=== PATIENT | female | born 1945 | race Caucasian/White ===

== ENCOUNTER 2019-10-08 08:13 | Outpatient (CLI) | payer MEDICARE, SELFPAY ==
[2019-10-08 08:38] LABS: Hemoglobin A1C 6.6 % (<5.7)
[2019-10-08 09:17] LABS: Alanine Aminotransferase 31 U/L (14-59); Albumin Level 3.6 g/dL (3.4-5.0); Alkaline Phosphatase 64 U/L (46-116); Anion Gap 10.5 mmol/L (7-16); Aspartate Amino Transferase 20 U/L (15-37); Bilirubin,Total 1.3 mg/dL (0.00-1.00); Blood Urea Nitrogen 15 mg/dL (7-18); Calcium 8.7 mg/dL (8.5-10.1); Carbon Dioxide 31 mmol/L (21-32); Chloride 104 mmol/L (98-108); Cholesterol 167 mg/dL (0-200); Estimated Glomerular Filt Rate 56; Glucose 111 mg/dL (70-99); HDL Direct 54 mg/dL (40-60); LDL Cholesterol Calculated 88 mg/dL (<130); Osmolality Calculated 293 mOsm/kg (285-295); Potassium 4.5 mmol/L (3.5-5.1); Sodium 141 mmol/L (136-145); Total Protein 6.7 g/dL (6.4-8.2); Triglycerides 124 mg/dL (0-150)
== END 2019-10-08 08:14 | disposition home or self-care (01) ==
PROVIDERS: PCP Internal Medicine; Visit Provider Internal Medicine
DX: E78.5 Hyperlipidemia, unspecified (principal); R73.03 Prediabetes; M85.80 Other specified disorders of bone density and structure, unspecified site
CPT/HCPCS: 36415; 80053; 80061; 83036

== ENCOUNTER 2019-10-27 07:45 | Outpatient (CLI) | payer MEDICARE, SELFPAY ==
--- NOTE | ~2019-10-27 | DEXA_ITS ---
BMD(1) Young-Adult(2) Age-Matched(3) Region (g/cm2) T-score Z-score WHO Classification L1 0.991 -1.2 0.2 Osteopenia L2 1.098 -0.9 0.5 Normal L3 1.154 -0.5 0.9 Normal L4 1.285 0.5 1.9 Normal L1-L4 1.149 -0.4 1.0 Normal Trend: L1-L4 Change vs Change vs Measured Age BMD(1) Baseline Previous Date ([age]) (g/cm2) (%) (%) 10/27/2019 [age] 1.149 -0.4 -1.8 09/27/2017 72.6 1.170 1.4 2.0 08/31/2015 [age] 1.147 -0.6 -2.1 07/31/2013 [age] 1.172 1.6 1.9 07/16/2011 [age] 1.150 -0.3 -0.3 08/16/2008 [age] 1.154 baseline - 1 - Statistically 68% of repeat scans fall within 1SD (+- 0.010 g/cm2 for AP Spine L1-L4) 2 - [place] (Combined NHANES (ages 20-30) / WinWeb (ages 20-40)) AP Spine Reference Population (v112) 3 - Matched for Age, Weight (females 25-100 kg), Ethnic 11 - World Health Organization - Definition of Osteoporosis and Osteopenia for Women: Normal = T-score at or above -1.0 SD; Osteopenia = T-score between -1.0 and -2.5 SD; Osteoporosis = T-score at or below -2.5 SD; (WHO definitions only apply when a young healthy Women reference database is used to determine T-scores.) Printed: 10/27/2019 8:29:01 AM (13.60)76:3.00:50.00:12.0 0.00:10.86 0.60x1.05 20.8:%Fat=37.0% 0.00:0.00 0.00:0.00 Filename: [id number] Scan Mode: Standard;OneScan 37.0 uGy OfficeDrop [id number] BMD(1) Young-Adult(2,7) Age-Matched(3) Region (g/cm2) T-score Z-score WHO Classification Neck Left 0.837 -1.4 0.2 Osteopenia Right 0.831 -1.5 0.2 Osteopenia Mean 0.834 -1.5 0.2 Osteopenia Difference 0.006 0.0 0.0 - Total Left 0.864 -1.1 0.3 Osteopenia Right 0.871 -1.1 0.3 Osteopenia Mean 0.868 -1.1 0.3 Osteopenia Difference 0.008 0.1 0.1 - Hip [place] Length Comparison (mm) (Right = 103.7 mm) (Mean = 103.4 mm) (Left = 100.8 mm) Trend: Total Mean Change vs Change vs Measured Age BMD(1) Baseline Previous Date (years) (g/cm2) (%) (%) 10/27/2019 74.7 0.868 0.8 0.3 07/31/2013 68.5 0.865 0.5 -0.6 07/16/2011 [age] 0.870 1.0 1.0 08/16/2008 63.5 0.861 baseline - 1 - Statistically 68% of repeat scans fall within 1SD (+- 0.010 g/cm2 for DualFemur Total) 2 - [place] (Combined NHANES (ages 20-30) / WinWeb (ages 20-40)) Femur Reference Population (v112) 3 - Matched for Age, Weight (females 25-100 kg), Ethnic 7 - DualFemur Total T-score difference is 0.1. Asymmetry is None. 11 - World Health Organization - Definition of Osteoporosis and Osteopenia for Women: Normal = T-score at or above -1.0 SD; Osteopenia = T-score between -1.0 and -2.5 SD; Osteoporosis = T-score at or below -2.5 SD; (WHO definitions only apply when a young healthy Women reference database is used to determine T-scores.) Printed: 10/27/2019 8:29:01 AM (13.60); Filename: [id number]; Right Femur; 19.1:%Fat=40.1%; Neck Angle (deg)= 70; Scan Mode: Standard 37.0 uGy; Left Femur; 18.9:%Fat=42.4%; Neck Angle (deg)= 67; Scan Mode: Standard 37.0 uGy OfficeDrop [id number] Dear Baron Fleming, Your patient Dede Johnson completed a BMD test on 10/27/2019 using the OfficeDrop DXA System (analysis version: 13.60) manufactured by [employer]. The following summarizes the results of ou
--- NOTE | ~2019-10-27 | MM_ITS ---
EXAMINATION: MM screening alisa BI w nicolas HISTORY: Screening mammogram, family history of breast cancer in her mother. TECHNIQUE: Craniocaudal and mediolateral oblique 3-D tomosynthesis images were obtained and synthetic 2-D images were generated. CAD analysis was submitted and interpreted. COMPARISON: 07/24/2018, 07/22/2018, 07/16/2017, 07/10/2016 BREAST PARENCHYMAL COMPOSITION: There are scattered areas of fibroglandular density. FINDINGS: RIGHT BREAST: There is no evidence of suspicious mass, calcification, or architectural distortion to suggest malignancy. There has been no significant interval change. LEFT BREAST: There are grouped indeterminate calcifications in the middle third of the outer breast a pproximately 6 cm from the nipple. IMPRESSION: 1. Indeterminate left breast calcifications. 2. Magnification views are recommended. BI-RADS Category 0: Incomplete: Needs additional imaging evaluation. Reviewed, dictated and finalized at location A.
== END 2019-10-27 07:46 | disposition home or self-care (01) ==
LOC: CHSIMG 07:47
PROVIDERS: PCP Internal Medicine; Visit Provider Internal Medicine
DX: Z12.31 Encounter for screening mammogram for malignant neoplasm of breast (principal); Z78.0 Asymptomatic menopausal state; M85.80 Other specified disorders of bone density and structure, unspecified site
CPT/HCPCS: 77063; 77067; 77080

== ENCOUNTER 2019-11-03 09:31 | Outpatient (CLI) | payer MEDICARE, SELFPAY ==
--- NOTE | ~2019-11-03 | MM_ITS ---
EXAMINATION: MM diagnostic mammo unilat LT HISTORY: Indeterminate left breast calcifications on screening mammogram TECHNIQUE: Additional images of the left breast were performed using full field digital mammography. CAD analysis was submitted and interpreted. COMPARISON: 10/27/2019, 07/24/2018, 07/22/2018, 07/16/2017 FINDINGS: There are grouped fine pleomorphic calcifications in the middle third of the upper outer qu adrant of the breast at the 2:00 location 6 cm from the nipple. No associated mass or architectural d istortion is identified. IMPRESSION: 1. Suspicious left breast calcifications. 2. Stereotactic left breast biopsy is recommended. BI-RADS category 4, suspicious findings. Reviewed, dictated and finalized at location A.
== END 2019-11-03 09:32 | disposition home or self-care (01) ==
LOC: CHSIMG 09:34
PROVIDERS: PCP Internal Medicine; Visit Provider Internal Medicine
DX: R92.8 Other abnormal and inconclusive findings on diagnostic imaging of breast (principal)
CPT/HCPCS: 77065

== ENCOUNTER 2019-11-09 10:01 | Outpatient (CLI) | payer MEDICARE, SELFPAY ==
--- NOTE | ~2019-11-09 | MM_ITS ---
MM stereotactic bx LT, MM post biopsy invasive LT, MM stereotactic specimen LT 11/09/2019 11:31 (accession [id number]), 11/09/2019 11:33 (accession [id number]), 11/09/2019 11:32 (accession [id number]) EXAMINATION: MM stereotactic bx LT, MM post biopsy invasive LT, MM s tereotactic specimen LT DATE: Tevin Vidales M.D. INDICATION: Abnormal calcifications in the left breast. Stereotactic core biopsy is requested evalua te for malignancy.] TECHNIQUE AND FINDINGS: The risks and potential benefits of the procedure were discussed with the patient and written informe d consent was obtained. The patient was placed in the prone position clustered at the table with the left breast in mediolateral compression, and the area of interest was localized and targeted utilizi ng digital imaging with stereotaxis. After sterile preparation of the skin, 1% lidocaine was utilized for local anesthesia at the skin pun cture site and 1% lidocaine with epinephrine was utilized for deeper local anesthesia/is about the bi opsy site. A 9G ProZyme vacuum assisted biopsy needle was advanced to the level of the calcification o f interest from a lateral approach utilizing stereotactic guidance and a total of 6 tissue core biops ies were obtained. A specimen radiograph demonstrates that the calcifications of interest are included within the tissue cores. A tissue marker clip was then placed at the biopsy site. The needle was removed and hemosta sis was achieved. The patient tolerated the procedure well and there is no evidence of significant i mmediate complication. The patient was given verbal as well as written postprocedural instructions p rior to discharge from the department. Tissue cores were submitted to surgical pathology for histolo gic analysis. A 2-view left unilateral digital mammogram was obtained post procedure and this demonstrates that the tissue marker clip is in expected position.] IMPRESSION: 1. Successful stereotactic biopsy of calcifications in the left breast, followed by tissue marker cl ip placement. Please refer to pathology report for histologic analysis. Reviewed, dictated and finalized at location A. IMPRESSION: 1. Successful stereotactic biopsy of calcifications in the left breast, follow ed by tissue marker clip placement. Please refer to pathology report for histo logic analysis. IMPRESSION: 1. Successful stereotactic biopsy of calcifications in the left breast, follow ed by tissue marker clip placement. Please refer to pathology report for histo logic analysis.
== END 2019-11-09 10:02 | disposition home or self-care (01) ==
PROVIDERS: PCP Internal Medicine; Visit Provider Internal Medicine
DX: R92.1 Mammographic calcification found on diagnostic imaging of breast (principal); C50.412 Malignant neoplasm of upper-outer quadrant of left female breast
CPT/HCPCS: 19081; 88305; 88342; A4648

== ENCOUNTER 2019-12-10 09:22 | Outpatient (CLI) | payer MEDICARE, SELFPAY ==
--- NOTE | 2019-12-10 09:24 | ECG_ITS ---
Measurements Intervals Riner Rate: 80 P: 58 WV: 132 QRS: -11 QRSD: 98 T: 21 QT: 361 QTc: 417 Interpretive Statements SINUS RHYTHM POSSIBLE LEFT ATRIAL ENLARGEMENT INCOMPLETE RIGHT BUNDLE BRANCH BLOCK BORDERLINE T WAVE ABNORMALITY- ANTERIOR LEADS BASELINE ARTIFACT- I, III, AVL BORDERLINE ECG Electronically Signed On 12-10-2019 9:53:33 CDT by Cory Esparza D.O.
== END 2019-12-10 09:23 | disposition home or self-care (01) ==
PROVIDERS: PCP Internal Medicine; Visit Provider Surgery
DX: Z01.818 Encounter for other preprocedural examination (principal); C50.919 Malignant neoplasm of unspecified site of unspecified female breast
CPT/HCPCS: 36415; 86850; 86900; 86901; 93005

== ENCOUNTER 2019-12-16 00:39 | Outpatient (CLI) | payer MEDICARE, SELFPAY ==
[2019-12-16 18:19] LABS: SARS-CoV-2 RNA PCR Negative
== END 2019-12-16 00:40 | disposition home or self-care (01) ==
LOC: ANHCOVIDDT 00:39
PROVIDERS: PCP Internal Medicine; Visit Provider Surgery
DX: Z01.812 Encounter for preprocedural laboratory examination (principal); Z20.828 Contact with and (suspected) exposure to other viral communicable diseases
CPT/HCPCS: 87635; C9803; U0003

== ENCOUNTER 2019-12-18 01:51 | Day surgery (SDC) | payer MEDICARE, SELFPAY ==
[2019-12-07 14:38] VITALS: BMI 28.7
[2019-12-18] VITALS (14 sets, daily range): BP systolic 121–143; BP diastolic 54–80; PULSE 76–87; RESP 10–16; TEMP 36–37.2; O2SAT 95–100
--- NOTE | ~2019-12-18 | NM_ITS ---
EXAMINATION: NM sentinel node inject only INDICATION: Left breast cancer TECHNIQUE: 1.1 mCi Tc 99m Lymphoseek were injected in 4 aliquots in the upper outer quadrant of the b reast near the areola. No images were obtained. IMPRESSION: 1. Status post left breast sentinel lymph node radiopharmaceutical injection. Reviewed, dictated and finalized at location A.
--- NOTE | 2019-12-18 10:46 | WPDANESEPPF ---
Anes - Initial Pre Proc Eval Procedure: Operation Date: 12/18/19 12:00 Proposed Procedures p Left Simple Masectomy With Spring Lymph Node Biopsy - Mauricio Ayala DO s Excision Of Left Axillary Skin Lesion - Mauricio Ayala DO Date/Time: 12/18/19 10:46 Surgeon: Mauricio Ayala DO Pre Op Diagnosis: Left Breast Cancer, Left Axillary Skin Lesion Patient Data Age: 74 Gender: F Height: 5 ft 3 in Weight: 71 kg Allergies Allergy/AdvReac Type Severity Reaction Status Date / Time gemifloxacin [From Factive] Allergy Intermediate Rash Verified 12/18/19 10:14 tetracycline AdvReac Severe Nausea and Verified 12/18/19 10:14 Vomiting Home Medications Medication Instructions Recorded Confirmed Type ascorbate calcium (vitamin C) 500 500 mg PO DAILY 11/18/19 12/18/19 History mg tablet atenolol 25 mg tablet 25 mg PO DAILY 11/18/19 12/18/19 History atorvastatin 10 mg tablet 10 mg PO HS 11/18/19 12/18/19 History bimatoprost 0.01 % eye drops 1 drop EACH EYE HS 11/18/19 12/18/19 History calcium polycarbophil 625 mg tablet 1,250 mg PO BID 11/18/19 12/18/19 History gabapentin 100 mg capsule 200 mg PO HS 11/18/19 12/18/19 History nortriptyline 25 mg capsule 25 mg PO DAILY 11/18/19 12/18/19 History calcium citrate-vitamin D3 1 tablet PO DAILY 12/07/19 12/18/19 History [Calcium Citrate + D] cyanocobalamin (vitamin B-12) 5,000 mcg PO DAILY 12/07/19 12/18/19 History flaxseed oil 1,000 mg PO DAILY 12/07/19 12/18/19 History ekpdvmdp-cdw-vxsc-FA-lutein 1 tablet PO DAILY 12/07/19 12/18/19 History [Centrum Silver Women] Patient hx anesthesia problems: none Family hx anesthesia problems: none PMFSH Past Medical History Medical History Basal cell carcinoma GERD (gastroesophageal reflux disease) High cholesterol History of blood transfusion HTN (hypertension) Migraine Peripheral vascular disease Surgical History Surgical History Cataracts, both eyes H/O cervical polypectomy H/O dilation and curettage H/O rhinoplasty History of colonoscopy History of eyelid surgery Hx of cholecystectomy Family History Family History Father No problems noted. 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 Questions were solicited and answers provided to the satisfaction of the patient/family/POA.
[2019-12-18] MEDS: LACTATED RINGERS 1,000 ML 30 ML IV CONT ×2 (10:48→13:32)
--- NOTE | 2019-12-18 11:25 | SUR.PREOP ---
1105 to [facility] med per w/c.
--- NOTE | 2019-12-18 11:30 | WPDHPUPDATE1 ---
History and Physical Update Update Date/Time: 12/18/19 11:30 History and Physical has been reviewed, including an updated exam of the patient. There are NO changes in the patient's condition. Risks, benefits, and alternatives have been discussed and questions answered. Patient agrees to proceed with procedure.
[2019-12-18] MEDS: ceFAZolin 2 GM/D5W 50 ML 2 GM/50 ML BAG IVPB (11:46)
[2019-12-18] MEDS: ISOSULFAN BLUE 1% INJ 5 ML VIAL SUB-Q (12:16)
[2019-12-18] MEDS: BUPIVACAINE/EPINEPHRINE 0.5% 30 ML VIAL INFILTRATE (12:16)
--- NOTE | 2019-12-18 13:15 | PM.PROC ---
Procedure Note - Detailed Date of procedure: 12/18/19 Pre-op diagnosis: Left Breast Cancer, Left Axillary Skin Lesion Post-op diagnosis: same Procedure performed: 1. Left simple mastectomy 2. Left axillary sentinel lymph node biopsy Description of procedure: procedure as well as risks, benefits, and alternatives were discussed with the patient. Written consent was obtained and placed in chart prior to procedure. Patient was brought back to surgical suite. She was placed supine on operating table. Time-out was done to confirm patient and procedure. She was then intubated by the Anesthesia Department. Isosulfan blue was infiltrated locally around the nipple areola complex. The left breast was massaged for several minutes. The left breast and axillary area was then prepped and draped in sterile fashion using chlorhexidine prep. 0.5% bupivacaine with epinephrine was infiltrated locally around the left breast. The elliptical incision angled towards the left axilla was carefully marked out along with the margins of the breast tissue around the skin. The incision was then carried out along the markings using 10 blade scalpel. Electrocautery was used for hemostasis. The superior skin flap was initially created using careful electrocautery. This was carried out all the way up to the level of the 2nd rib until the pectoral fascia was encountered. I then carried out the inferior skin flap in a similar fashion using electrocautery down to the inframammary fold and to the level of the pectoral fascia. I then continued along these margins medially until I reached the lateral edge of the sternum. He also carried out this incision laterally to the axillary tail of the breast tissue. The breast tissue was then carefully dissected off of the pectoral muscle using electrocautery. The perforating vessels were ligated along the way using electrocautery. The breast tissue was completely excised from the left chest wall. The breast was then marked for orientation using a short suture superior and long suture lateral. This was then sent to the lab for pathology. Where the incision angled up into the axilla, I then used the gamma probe to identify the axillary lymph nodes. I then carefully dissected into the axillary contents using electrocautery and blunt dissection with a hemostat. I identified 2 sentinel lymph nodes. The 1st lymph node was carefully isolated and removed using electrocautery. There was still some residual uptake with the gamma probe after removing the 1st lymph node, therefore the 2nd lymph node was removed in a similar fashion. After removing both of these lymph nodes, there was no measurable uptake using the gamma probe within the axillary contents remaining. The wound bed was then inspected and irrigated with sterile saline. Hemostasis was achieved with electrocautery. The 15 round Ritchie drain was then placed through a counter incision in the left lateral chest and the drain was secured in place using a 3 0 nylon drain stitch. The deep dermis was then reapproximated using 3 0 Vicryl simple interrupted sutures. The skin was then approximated using a 4 Monocryl running subcuticular suture. Exofin glue was then applied on top. Telfa gauze, fluff gauze, and a surgical bra were then applied. The patient was then awakened from anesthesia, extubated, and transferred to recovery. Anesthesia: GLMA and local ( 0.5% bupivacaine with epinephrine) Surgeon: Mauricio Ayala, DO Drains: Yes ( 15 round Ritchie) Pathology: yes ( left breast marked with short suture superior and long suture lateral, sentinel lymph node x2) Complications: No immediate complications Condition: stable Disposition: observation Findings: this is a 74-year-old woman who presented with a recent finding of left breast cancer. She had recently undergone a screening mammogram and early October and was found to have an abnormality. Diagnostic follow-up images demonstrated a BI-RADS cat
--- NOTE | 2019-12-18 15:05 | PC.NURSE ---
This patient, Dede Johnson, was admitted to 3 [facility] Surg Room 315-01. Patient/family oriented to hospital policies and general routines including ID bracelet, bed and alarms, visiting hours, pain management, procedures, bathroom and other care routines, personal items, smoking policy, room service/diet, and visiting hours. Valuables list has been completed.Report received from Radha ALVARADO. Information on how to activate the Rapid Response Team has been discussed. Patient/Family are encouraged to report perceived risks to care and to ask questions if they do not understand what they are told or what they should do.
[2019-12-18] MEDS: LACTATED RINGERS 1,000 ML 100 ML IV CONT (15:43)
[2019-12-18] MEDS: LATANOPROST 0.005% OP SOLN 2.5 ML BTL 1 DROP EACH EYE (20:48)
[2019-12-18] MEDS: ATORVASTATIN 10 MG TABLET PO (20:48)
[2019-12-18] MEDS: GABAPENTIN 100 MG CAPSULE 200 MG PO (20:48)
[2019-12-18] MEDS: ENOXAPARIN 30 MG/0.3 ML SYRINGE SUB-Q (20:48)
[2019-12-19 02:00] VITALS: BP 118/50; PULSE 78; RESP 18; TEMP 36.2; O2SAT 99
[2019-12-19 06:00] VITALS: BP 137/59; PULSE 86; RESP 16; TEMP 36.5; O2SAT 97
--- NOTE | 2019-12-19 07:51 | WPDANESPN ---
Anes - Prog Note Post-Op Date/Time: 12/19/19 07:51 Cardiovascular status: normal Respiratory status: normal Airway patency: baseline Mental status: baseline Post-Op hydration status: normal Vital Signs: Last Vital Signs Temp 36.5 C 12/19/19 06:00 Pulse 86 12/19/19 06:00 Resp 16 12/19/19 06:00 BP 137/59 L 12/19/19 06:00 Pulse Ox 97 12/19/19 06:00 I/O: Intake & Output 12/18/19 12/18/19 12/19/19 15:59 23:59 07:59 Intake Total 446 888 0248 Output Total 930 1040 Balance 350 -660 310 Post-procedural complaints: none Patient Feedback: Patient satisfied with anesthetic care.
[2019-12-19] MEDS: ENOXAPARIN 30 MG/0.3 ML SYRINGE SUB-Q (09:00)
[2019-12-19 09:01] VITALS: PULSE 84
[2019-12-19] MEDS: atenoloL 25 MG TABLET PO (09:01)
[2019-12-19] MEDS: NORTRIPTYLINE HCL 25 MG CAPSULE PO (09:05)
[2019-12-19 10:56] VITALS: BP 131/54; PULSE 75; RESP 18; TEMP 36.5; O2SAT 100
--- NOTE | 2019-12-19 12:59 | PM.DS ---
DS: Admitting Diagnosis Admitting Diagnosis Admitting Diagnosis: Left Breast Cancer, Left Axillary Skin Lesion DS: Discharge Diagnosis Discharge Diagnosis (1) Invasive ductal carcinoma of breast, female: Qualifiers: Laterality: left Qualified Code(s): C50.912 - Malignant neoplasm of unspecified site of left female breast Code(s): C50.919 - Malignant neoplasm of unspecified site of unspecified female breast Status: Acute (2) HTN (hypertension): Qualifiers: Hypertension type: essential hypertension Qualified Code(s): I10 - Essential (primary) hypertension Code(s): I10 - Essential (primary) hypertension Status: Acute DS: Summary Hospital Course Reason for hospitalization: Left breast cancer Hospital Course: This is 74-year-old woman who presented for treatment of left breast cancer. She has a prior history of abnormal mammogram and subsequently underwent stereotactic left breast biopsy. Pathology showed evidence of invasive ductal carcinoma. Treatment options were discussed with the patient, and she chose to proceed with left mastectomy with sentinel lymph node biopsy. She is status post left simple mastectomy with left axillary sentinel lymph node biopsy on 12/17. Surgery was uncomplicated and a drain was placed at the time of surgery. Overnight she did well and tolerated her activity and diet. She had minimal pain. She was ambulating without much difficulty. She was instructed on proper drain care along with her family members will be helping her with this. Pathology is pending at the time of discharge. Status at Discharge Functional status at discharge: independent ambulation Overall status at discharge: patient is progressing back to baseline Time Spent with Patient Time attestation: Total time spent providing and/or coordinating discharge services: Time spent: Less than 30 minutes Exam Const: General: no acute distress Neck: Neck: supple and no JVD Resp: Effort & Inspection: normal respiratory effort Auscultation: clear to auscultation bilaterally Cardio: Rate: regular rate Rhythm: regular rhythm GI: GI Palp: Yes Soft to palpation and No Tenderness to palpation present (GI) Auscultation: normal bowel sounds Skin: Other: Left chest incision appears dry and intact with glue. LARA drain with minimal serosanguineous output. Psych: Mental Status: mental status grossly normal DS: Data Data Completed and Pending Pending studies at discharge: Pending at discharge 12/18/19 12:34 Surgical [PTH] Routine Surgical [PTH] Routine Discharge Plan Discharge Patient Disposition: Home, Self-Care Discharge Instructions: Discharge Instruction Sheet for [place] Node Biopsy (Possible Axillary Node Dissection) Patients Dr. Mcintosh, Dr. [facility] [address] [place] [address] 1.) Keep wound clean and dry. If drains are present, will need to sponge bathe until drain(s) are removed. This drain will be removed during your follow up visit. 2.) No vigorous activity or carrying with affected arm. May use arm to comb hair, eat, write, etc. 3.) Do not apply creams or ointments unless directed to do so by your surgeon. 4.) Ambulate (walk) for exercise at least 3 times per day. 5.) Contact your surgeon?s office if you have excessive and persistent pain, swelling, bleeding, or drainage through the dressing, redness or red streaks around the wound, heat or warmth at the site of the incision, or fever of more then 101 degrees. 6.) Resume all home medications. Patient to be given pain medication prescription prior to discharge if needed. 7.) Please be aware that the surgeon will likely inject a ?blue dye? to identify the sentinel lymph node during the procedure. This dye may turn your urine blue or green for 24 hours and skin a blue color that will fade over
== END 2019-12-19 14:30 | disposition home or self-care (01) ==
LOC: ANHSURGERY 09:55 → ANH3MEDSUR 15:15
PROVIDERS: PCP Internal Medicine; Visit Provider Surgery
PROC: (CPT 19303; principal; 2019-12-18 12:00)
PROC: (CPT 19303; 2019-12-18 12:00)
DX: C50.412 Malignant neoplasm of upper-outer quadrant of left female breast (principal); C77.3 Secondary and unspecified malignant neoplasm of axilla and upper limb lymph nodes; I10 Essential (primary) hypertension; K21.9 Gastro-esophageal reflux disease without esophagitis; E78.00 Pure hypercholesterolemia, unspecified
CPT/HCPCS: 19303; 38525; 38792; 88305; 88307; 88342; A9270; A9520; J0690; J1100; J1650; J2405; J2704; J3010; J7120

== ENCOUNTER 2020-02-19 15:00 | Outpatient (CLI) | payer MEDICARE, SELFPAY ==
--- NOTE | ~2020-02-19 | XR_ITS ---
EXAMINATION: XR shoulder LT min 2V DATE: 02/19/2020 15:27 INDICATION: Left shoulder pain. TECHNIQUE: 4 views of left shoulder were obtained. COMPARISON: Left shoulder radiographs 08/01/11 FINDINGS: Bone alignment is normal. No acute fracture. There is mild osteoarthritis of glenohumeral j oint and acromioclavicular joint. There is an old healed fracture of left sixth rib. IMPRESSION: 1. Mild polyarticular osteoarthritis. Reviewed, dictated and finalized at location A.
== END 2020-02-19 15:01 | disposition home or self-care (01) ==
LOC: CHSIMG 15:02
PROVIDERS: PCP Internal Medicine; Visit Provider Internal Medicine
DX: M25.512 Pain in left shoulder (principal); M15.9 Polyosteoarthritis, unspecified
CPT/HCPCS: 73030

== ENCOUNTER 2020-03-22 12:37 | Outpatient (RCR) | payer MEDICARE, SELFPAY ==
--- NOTE | 2020-03-22 13:59 | PTOPEVAL ---
Thank you for referring Dede Johnson to [facility].? The patient is scheduled to be seen for therapy? ____x/week for ___ weeks. Please review, sign, date and return this plan of care CAPRICE. I agree with and certify that the following plan of care is medically necessary. Referring Physician Date Admitting Provider: Attending Provider: Baron Fleming MD Referring Provider: *PT Outpatient Evaluation Start: 03/22/20 13:06 Freq: Status: Active Protocol: Document 03/22/20 13:05 CLARENCE (Rec: 03/22/20 13:59 CLARENCE [email or web address]) Therapy Assessment Status Assessment Status Assessment Status Evaluation Outpatient Past Medical History Neurological History Hx Other Neurological Disorders Yes: FACIAL NEURALGIA Cardiovascular History Hx Hypercholesterolemia Yes Hx Hypertension Yes Hx Mitral Valve Prolapse Yes: TRIVIAL MITRAL TRICUSPID REGURGITATION Hx Other Cardiac Disorders Yes: PT DENIES CARDIAC SYMPTOMS, WALKS 1/2HR TWICE DAILY Respiratory History Hx Respiratory Disorders No Significant History Gastrointestinal History Hx Cholecystectomy Yes Hx Gastroesophageal Reflux Disease Yes Hx Hemorrhoids Yes: BANDING Hx Hernia Yes: HIATAL HERNIA - NO SURGERY Hx Polyps Yes: REMOVED WITH COLONOSCOPY Hx Other Gastrointestinal Disorders Yes: OCCASIONAL CONSTIPATION Genitourinary History Hx Bladder Surgery Yes: CYSTOSCOPY Musculoskeletal History Hx Arthritis Yes: POSSIBLE HANDS/KNEES Hx Fractures Yes: HX OF LT RIB, NOSE, TOE Hematological History Hx Blood Transfusions Yes: Endocrine History Hx Endocrine Disorders No Significant History HEENT History Hx Cataracts Yes: BILATERAL SURGERY Hx Sinus Problems Yes: SEASONAL ALLERGIES Hx Deviated Septum Yes: SURGERY Hx Dental Problems Yes Hx Other HEENT Disorders Yes: GLASSES Integumentary History Hx Excision Skin Lesion Yes: BCC REMOVED BACK, NOSE Reproductive History Hx Post Menopausal Yes Hx Other Reproductive Disorders Yes: LT BREAST CA Psychosocial History Hx Recent Lifestyle Changes Yes: NEWLY DX WITH BREAST CA Pain History History of Any Previous or Ongoing No Significant History Instance of Pain Anesthesia History Hx Anesthesia Reactions No Significant History Other History Hx Cancer Yes: LT BREAST Evaluation Information Problem Diagnosis L shoulder pain Onset 02/13/20 Additional Evaluation Detail quick dash = 47% functionally
--- NOTE | 2020-04-05 14:07 | PTOPEVAL ---
Thank you for referring Dede Johnson to [facility].? The patient is scheduled to be seen for therapy? ____x/week for ___ weeks. Please review, sign, date and return this plan of care CAPRICE. I agree with and certify that the following plan of care is medically necessary. 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 Hx Other Cardiac Disorders Yes: PT DENIES CARDIAC SYMPTOMS, WALKS 1/2HR TWICE DAILY Respiratory History Hx Respiratory Disorders No Significant History Gastrointestinal History Hx Cholecystectomy Yes Hx Gastroesophageal Reflux Disease Yes Hx Hemorrhoids Yes: BANDING Hx Hernia Yes: HIATAL HERNIA - NO SURGERY Hx Polyps Yes: REMOVED WITH COLONOSCOPY Hx Other Gastrointestinal Disorders Yes: OCCASIONAL CONSTIPATION Genitourinary History Hx Bladder Surgery Yes: CYSTOSCOPY Musculoskeletal History Hx Arthritis Yes: POSSIBLE HANDS/KNEES Hx Fractures Yes: HX OF LT RIB, NOSE, TOE Hematological History Hx Blood Transfusions Yes: Endocrine History Hx Endocrine Disorders No Significant History HEENT History Hx Cataracts Yes: BILATERAL SURGERY Hx Sinus Problems Yes: SEASONAL ALLERGIES Hx Deviated Septum Yes: SURGERY Hx Dental Problems Yes Hx Other HEENT Disorders Yes: GLASSES Integumentary History Hx Excision Skin Lesion Yes: BCC REMOVED BACK, NOSE Reproductive History Hx Post Menopausal Yes Hx Other Reproductive Disorders Yes: LT BREAST CA Psychosocial History Hx Recent Lifestyle Changes Yes: NEWLY DX WITH BREAST CA Pain History History of Any Previous or Ongoing No Significant History Instance of Pain Anesthesia History Hx Anesthesia Reactions No Significant History Other History Hx Cancer Yes: LT BREAST Evaluation Information Problem Diagnosis L shoulder pain Subjective Information mrs. lou reports she Query Text:As Reported By Patient/ feels better with relation Family
--- NOTE | 2020-04-29 12:49 | PTOPEVAL ---
Thank you for referring Dede Johnson to [facility].? The patient is scheduled to be seen for therapy? ____x/week for ___ weeks. Please review, sign, date and return this plan of care CAPRICE. I agree with and certify that the following plan of care is medically necessary. 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 Hx Other Cardiac Disorders Yes: PT DENIES CARDIAC SYMPTOMS, WALKS 1/2HR TWICE DAILY Respiratory History Hx Respiratory Disorders No Significant History Gastrointestinal History Hx Cholecystectomy Yes Hx Gastroesophageal Reflux Disease Yes Hx Hemorrhoids Yes: BANDING Hx Hernia Yes: HIATAL HERNIA - NO SURGERY Hx Polyps Yes: REMOVED WITH COLONOSCOPY Hx Other Gastrointestinal Disorders Yes: OCCASIONAL CONSTIPATION Genitourinary History Hx Bladder Surgery Yes: CYSTOSCOPY Musculoskeletal History Hx Arthritis Yes: POSSIBLE HANDS/KNEES Hx Fractures Yes: HX OF LT RIB, NOSE, TOE Hematological History Hx Blood Transfusions Yes: Endocrine History Hx Endocrine Disorders No Significant History HEENT History Hx Cataracts Yes: BILATERAL SURGERY Hx Sinus Problems Yes: SEASONAL ALLERGIES Hx Deviated Septum Yes: SURGERY Hx Dental Problems Yes Hx Other HEENT Disorders Yes: GLASSES Integumentary History Hx Excision Skin Lesion Yes: BCC REMOVED BACK, NOSE Reproductive History Hx Post Menopausal Yes Hx Other Reproductive Disorders Yes: LT BREAST CA Psychosocial History Hx Recent Lifestyle Changes Yes: NEWLY DX WITH BREAST CA Pain History History of Any Previous or Ongoing No Significant History Instance of Pain Anesthesia History Hx Anesthesia Reactions No Significant History Other History Hx Cancer Yes: LT BREAST Evaluation Information Problem Diagnosis L shoulder pain Subjective Information Patient reports that she is Query Text:As Reported By Patient/ pretty sore today. She states Family
== END 2020-05-10 10:37 | disposition home or self-care (01) ==
LOC: CHSPT 12:37
PROVIDERS: PCP Internal Medicine; Visit Provider Internal Medicine
DX: M25.512 Pain in left shoulder (principal)
CPT/HCPCS: 97110; 97161; 97530

== ENCOUNTER 2020-04-09 09:06 | Outpatient (CLI) | payer MEDICARE, SELFPAY ==
--- NOTE | ~2020-04-09 | MR_ITS ---
EXAMINATION: MR shoulder LT wo con DATE: 04/09/2020 10:11 INDICATION: Left shoulder pain. TECHNIQUE: Magnetic resonance imaging (MRI) of the left shoulder was performed without intravenous co ntrast. Sequences included axial PD-weighted FS FSE, coronal oblique PD-weighted FS FSE and T2-weight ed FS FSE, and sagittal oblique T2-weighted FS FSE and T1-weighted FSE. COMPARISON: Left shoulder radiographs 02/19/2020 FINDINGS: Coracoacromial arch: The acromion undersurface is curved in morphology (type II). There is mild acromioclavicular joint os teoarthritis. There is mild subacromial/subdeltoid bursitis. Rotator cuff: There is moderate supraspinatus and infraspinatus tendinopathy. Teres minor tendon is normal. There i s moderate subscapularis tendinopathy. There is edema in the periphery of the supraspinatus, infraspi natus, and teres minor muscle bellies, consistent with strains. There is no asymmetric fatty atrophy of the rotator cuff muscle bellies. There is degenerative cystic change in greater tuberosity. Biceps tendon and glenoid labrum: Biceps tendon is in bicipital groove. Intra-articular biceps tendon is normal. The glenoid labrum is normal. Fluid: There is a small glenohumeral joint effusion. Bones/cartilage: Glenoid cartilage is normal. Humeral cartilage is normal. IMPRESSION: 1. Moderate rotator cuff tendinopathy. 2. Edema of the supraspinatus, infraspinatus, and teres minor muscle bellies, likely mild strains (gr maryse 1). 3. Mild subacromial/subdeltoid bursitis. 4. Mild acromioclavicular joint osteoarthritis. 5. Small glenohumeral joint effusion. Reviewed, dictated and finalized at location A. AND WATER TESTER IMPRESSION: 1. Moderate rotator cuff tendinopathy. 2. Edema of the supraspinatus, infraspinatus, and teres minor muscle bellies, l ikely mild strains (grade 1). 3. Mild subacromial/subdeltoid bursitis. 4. Mild acromioclavicular joint osteoarthritis. 5. Small glenohumeral joint effusion.
== END 2020-04-09 09:07 | disposition home or self-care (01) ==
LOC: CHSIMG 09:09
PROVIDERS: PCP Internal Medicine; Visit Provider Internal Medicine
DX: M25.512 Pain in left shoulder (principal); Z85.3 Personal history of malignant neoplasm of breast
CPT/HCPCS: 73221

== ENCOUNTER 2020-09-12 11:26 | Outpatient (CLI) | payer MEDICARE, SELFPAY ==
--- NOTE | ~2020-09-12 | XR_ITS ---
EXAMINATION: XR knee LT 3V DATE: 09/12/2020 12:00 INDICATION: Left knee pain. TECHNIQUE: 3 views of left knee on 4 radiographs were obtained. COMPARISON: None. FINDINGS: Bone alignment is normal. No fracture. There is mild osteoarthritis of medial and patellofe moral compartments. No knee joint effusion. IMPRESSION: 1. Mild left knee osteoarthritis. Reviewed, dictated and finalized at location B.
--- NOTE | ~2020-09-12 | XR_ITS ---
XR ankle RT min 3V DATE: 09/12/2020 11:59 INDICATION: Right ankle pain TECHNIQUE: 4 views COMPARISON: None FINDINGS: No fracture or dislocation of the ankle or disruption of the ankle mortise is evident. Probable os tibiale externum. IMPRESSION: No fracture or dislocation or other significant abnormality of the ankle Reviewed, dictated and finalized at location A.
== END 2020-09-12 11:27 | disposition home or self-care (01) ==
LOC: CHSIMG 11:28
PROVIDERS: PCP Internal Medicine; Visit Provider Internal Medicine
DX: M25.562 Pain in left knee (principal); M25.571 Pain in right ankle and joints of right foot
CPT/HCPCS: 73562; 73610

== ENCOUNTER 2020-09-30 07:21 | Outpatient (CLI) | payer MEDICARE, SELFPAY ==
[2020-09-30 07:42] LABS: Hemoglobin A1C 6.4 % (<5.7)
[2020-09-30 08:21] LABS: Cholesterol 159 mg/dL (0-200); HDL Direct 64 mg/dL (40-60); LDL Cholesterol Calculated 75 mg/dL (<130); Thyroid Stimulating Hormone 1.27 uIU/mL (0.36-3.74); Triglycerides 101 mg/dL (0-150)
== END 2020-09-30 07:22 | disposition home or self-care (01) ==
LOC: CHSLAB 07:22
PROVIDERS: PCP Internal Medicine; Visit Provider Internal Medicine
DX: R73.03 Prediabetes (principal); Z20.822 Contact with and (suspected) exposure to COVID-19; E78.5 Hyperlipidemia, unspecified
CPT/HCPCS: 36415; 80061; 83036; 84443

== ENCOUNTER 2020-10-27 10:48 | Outpatient (CLI) | payer MEDICARE, SELFPAY ==
--- NOTE | ~2020-10-27 | MM_ITS ---
EXAMINATION: MM screening alisa RT w nicolas HISTORY: Screening right mammogram, history of left breast cancer TECHNIQUE: Craniocaudal and mediolateral oblique 3-D tomosynthesis images were obtained and synthetic 2-D images were generated. CAD analysis was submitted and interpreted. COMPARISON: 10/27/2019, 07/24/2018, 07/22/2018, 07/16/2017 BREAST PARENCHYMAL COMPOSITION: There are scattered areas of fibroglandular density. FINDINGS: There is no evidence of suspicious mass, calcification, or architectural distortion to sugg est malignancy. There has been no suspicious interval change. IMPRESSION: 1. No mammographic evidence of malignancy. 2. Recommend routine screening mammography in one year. BI-RADS Category 1: Negative Reviewed, dictated and finalized at location A.
[2020-10-31 03:31] LABS: Hepatitis C Signal to Cutoff 0.01 ratio (<1.00); Hepatitis C Virus Antibody Nonreactive (Nonreactive)
== END 2020-10-27 10:49 | disposition home or self-care (01) ==
PROVIDERS: PCP Internal Medicine; Visit Provider Nurse Practitioner Family
DX: Z12.31 Encounter for screening mammogram for malignant neoplasm of breast (principal); Z13.89 Encounter for screening for other disorder
CPT/HCPCS: 36415; 77063; 77067

== ENCOUNTER 2021-07-04 09:40 | Outpatient (CLI) | payer MEDICARE, SELFPAY | END 2021-07-04 09:41 | disposition home or self-care (01) | LOC: CHSOUTPT 09:50 | PROVIDERS: PCP Internal Medicine; Visit Provider Specialist | DX: C44.01 Basal cell carcinoma of skin of lip (principal); C44.722 Squamous cell carcinoma of skin of right lower limb, including hip | CPT/HCPCS: 88305 ==

== ENCOUNTER 2021-10-09 09:12 | Outpatient (CLI) | payer MEDICARE, SELFPAY ==
[2021-10-09 09:50] LABS: Cholesterol 176 mg/dL (0-200); HDL Direct 56 mg/dL (40-60); LDL Cholesterol Calculated 88 mg/dL (<130); Thyroid Stimulating Hormone 1.35 uIU/mL (0.36-3.74); Triglycerides 162 mg/dL (0-150)
== END 2021-10-09 09:13 | disposition home or self-care (01) ==
LOC: CHSLAB 09:14
PROVIDERS: PCP Internal Medicine; Visit Provider Internal Medicine
DX: E78.5 Hyperlipidemia, unspecified (principal)
CPT/HCPCS: 36415; 80061; 84443

== ENCOUNTER 2021-10-30 12:26 | Outpatient (CLI) | payer MEDICARE, SELFPAY ==
--- NOTE | ~2021-10-30 | MM_ITS ---
EXAMINATION: MM screening alisa RT w nicolas HISTORY: Screening right mammogram, history of left mastectomy TECHNIQUE: Craniocaudal and mediolateral oblique 3-D tomosynthesis images were obtained and synthetic 2-D images were generated. CAD analysis was submitted and interpreted. COMPARISON: 10/27/2020, 10/27/2019, 07/24/2018 BREAST PARENCHYMAL COMPOSITION: There are scattered areas of fibroglandular density. FINDINGS: There is no suspicious mass, calcification, or architectural distortion to suggest malignan cy. There has been no suspicious interval change. IMPRESSION: 1. No mammographic evidence of malignancy. 2. Recommend routine screening mammography in one year. BI-RADS Category 1: Negative Reviewed, dictated and finalized at location A.
--- NOTE | ~2021-10-30 | DEXA_ITS ---
Bone Density Report Name: NYA LOCKHART Age: 76 Sex: Female Ethnicity: White Date of : 1945 Indication: postmenopausal; screening for osteoporosis; height loss; prior fracture; cancer; Referring Provider: Baron Fleming Study: Bone densitometry was performed. Exam Date: October 30, 2021 Accession number: [id number] Bone Density: Region BMD T-score Z-score Classification AP Spine(L1-L4) 0.915 -1.2 1.2 Osteopenia Femoral Neck (Left) 0.636 -1.9 0.2 Osteopenia Total Hip (Left) 0.761 -1.5 0.3 Osteopenia Femoral Neck (Right) 0.659 -1.7 0.4 Osteopenia Total Hip (Right) 0.780 -1.3 0.5 Osteopenia Femoral Neck Mean 0.648 -1.8 0.3 Osteopenia Total Hip Mean 0.770 -1.4 0.4 Osteopenia World Health Organization criteria for BMD impression classify patients as: Normal (T-score at or above -1.0), Osteopenia (T-score between -1.0 and -2.5), or Osteoporosis (T-score at or below -2.5). 10-year Fracture Risk(1): Major Osteoporotic Fracture 19% Hip Fracture 4.5% Reported Risk Factors: [place] (), Neck BMD=0.636, BMI=28.7, previous fracture (1) FRAX(R) Version 3.08. Fracture probability calculated for an untreated patient. Fracture probability may be lower if the patient has received treatment. Clinical Information Provided by Patient: Has had a low trauma fracture Has used the following medications: Vitamin D, Calcium Has the following medical conditions: Cancer Patient maximum height was 64 No regular weight bearing exercise Drinks caffeinated beverages Onset of menses at age 13 Number of children 0 Impression: The patient has low bone mass, based on the Left Femoral Neck T-score. The patient has risk factors, including: previous fracture. Discussion: BONE DENSITY IS LOW AT ONE OR MORE SKELETAL SITES. This patient's lowest T-score is low at one or more skeletal sites. It meets the World Health Organization's (WHO) criteria for ?low bone mass? (T-score between -1.0 and -2.5). The patient's 10-year risk of fracture as calculated by FRAX is less than the threshold where pharmacological therapy is recommended by the National Osteoporosis Foundation (NOF). However, all treatment decisions require clinical judgment and consideration of individual patient factors, including patient preferences, comorbidities, previous drug use, risk factors not captured in the FRAX model (e.g., frailty, falls, vitamin D deficiency, increased bone turnover, interval significant decline in bone density) and possible under or overestimation of fracture risk by FRAX. The patient should follow a healthful lifestyle (good nutrition with adequate calcium and vitamin D, and appropriate weight-bearing exercise). Follow-Up: Consider repeating this study in 2 to 3 years to reassess this patien
== END 2021-10-30 12:27 | disposition home or self-care (01) ==
LOC: CHSIMG 12:32
PROVIDERS: PCP Internal Medicine; Visit Provider Internal Medicine
DX: M81.0 Age-related osteoporosis without current pathological fracture (principal); Z12.31 Encounter for screening mammogram for malignant neoplasm of breast
CPT/HCPCS: 77063; 77067; 77080

== ENCOUNTER 2022-05-03 09:09 | Outpatient (CLI) | payer MEDICARE, SELFPAY ==
--- NOTE | 2022-05-03 09:20 | ECG_ITS ---
Rate 94 WI 127 QRSd 97 QT 338 QTc 424 --[place]-- P 84 QRS 23 T 84 SINUS RHYTHM WITH SINUS ARRHYTHMIA INCOMPLETE RIGHT BUNDLE BRANCH BLOCK BORDERLINE T WAVE ABNORMALITY- ANTERIOR LEADS BASELINE WANDER- I BORDERLINE ECG COMPARED TO ECG 12/10/2019 09:59:28 SINUS ARRHYTHMIA NOW PRESENT Electronically Signed On 05-03-2022 9:26:31 CIRCUIT BOARD INSPECTOR by Cory SUMMERS
[2022-05-03 12:46] LABS: SARS-CoV-2 RNA PCR Negative (Negative)
[2022-05-03 12:51] LABS: RSV RNA, RT-PCR Negative (Negative)
== END 2022-05-03 09:10 | disposition home or self-care (01) ==
PROVIDERS: PCP Internal Medicine; Visit Provider Internal Medicine
DX: I10 Essential (primary) hypertension (principal); J06.9 Acute upper respiratory infection, unspecified; Z20.822 Contact with and (suspected) exposure to COVID-19
CPT/HCPCS: 87634; 93005; U0003; U0005

== ENCOUNTER 2022-09-12 11:54 | Outpatient (CLI) | payer MEDICARE, SELFPAY ==
--- NOTE | ~2022-09-12 | XR_ITS ---
Lumbosacral Spine: AP and lateral views Clinical History: Pain Findings: The normal lordotic curve is maintained. 8 mm anterolisthesis of L4 over L5 is present. No fracture seen. There is moderate to advanced facet arthropathy throughout the lumbar spine. There is mild degenerative disc narrowing L4-L5. The sacroiliac joints are normally outlined. Impression: 8 mm anterolisthesis of L4 over L5. Diffuse moderate to advanced facet arthropathy. Mild degenerative disc narrowing at L4-L5. Reviewed, dictated and finalized at location M. Impression: 8 mm anterolisthesis of L4 over L5. Diffuse moderate to advanced facet arthropathy. Mild degenerative disc narrowing at L4-L5.
--- NOTE | ~2022-09-12 | XR_ITS ---
EXAMINATION: XR chest 2V 09/12/2022 12:29 INDICATION: Dyspnea PROCEDURE: 2 view chest COMPARISON: 08/01/2011 FINDINGS: The lungs are clear. The cardiomediastinal silhouette is within normal limits. There are no pleural effusions. There is no pneumothorax suspected. IMPRESSION: 1: NO ACUTE CARDIOPULMONARY DISEASE. Reviewed, dictated and finalized at location B.
[2022-09-12 12:17] LABS: Appearance Urine Clear (Clear); Basophils Absolute Auto 0.07 K/mm3 (0.00-0.10); Basophils Percent Auto 1.2 % (0.0-1.0); Bilirubin Urine Negative (Negative); Color Urine Light Yellow (Yellow); Eosinophils Absolute Auto 0.18 K/mm3 (0.02-0.50); Eosinophils Percent Auto 3.2 % (1.0-6.0); Glucose Urine UA Negative (Negative); Hematocrit 41.2 % (35.0-42.0); Hemoglobin 13.2 g/dL (11.7-13.8); Immature Granulocyte Absolute 0.01 K/mm3 (0.00-0.00); Immature Granulocyte Percent A 0.2 % (0.0-0.0); Ketones Urine Negative (Negative); Leukocyte Esterase Ur Negative (Negative); Lymphocytes Percent Auto 31.5 % (18.0-42.0); Mean Corpuscular Hemoglobin 29.5 pg (27.0-31.0); Mean Corpuscular Volume 92.2 fL (78.0-102.0); Mean Platelet Volume 9.3 fl (9.2-11.8); Monocytes Absolute Auto 0.46 K/mm3 (0.10-0.90); Monocytes Percent Auto 8.1 % (2.0-11.0); Neutrophils Absolute Auto 3.2 K/mm3 (1.7-7.2); Neutrophils Percent Auto 55.8 % (50.0-70.0); Nitrate Urine Negative (Negative); Platelet Count Result 324 K/mm3 (150-420); Protein Urine Negative (Negative); Red Blood Count 4.47 M/mm3 (4.20-5.40); Red Cell Distribution Width 12.9 % (11.6-14.4); Specific Grav Ur 1.015 (1.010-1.020); Urobilinogen Urine 0.2 mg/dL (0.2-1.0); White Blood Count 5.7 K/mm3 (4.8-10.8); pH Urine 7.5 (5.0-8.0)
[2022-09-12 12:24] LABS: Add Urine Microscopic? YES; Amorphous Sediment Urine Few; Bacteria Urine None seen /hpf; Blood Urine Trace-Lysed (Negative); Squamous Epithelial Cell Urine Rare /hpf (Few); WBC Urine 0-3 /hpf (0-3)
[2022-09-12 12:30] LABS: D Dimer 0.41 mg/L (0.19-0.50)
[2022-09-12 12:57] LABS: Alanine Aminotransferase 33 U/L (14-59); Albumin Level 2.5 g/dL (3.4-5.0); Alkaline Phosphatase 77 U/L (46-116); Anion Gap 7 mmol/L (8-16); Aspartate Amino Transferase 21 U/L (15-37); Bilirubin,Total 1.1 mg/dL (0.00-1.00); Blood Urea Nitrogen 25 mg/dL (7-18); Calcium 9.3 mg/dL (8.5-10.1); Carbon Dioxide 30 mmol/L (21-32); Chloride 105 mmol/L (98-108); Estimated Glomerular Filt Rate 57; Glucose 88 mg/dL (70-99); NT Pro B Type Natriuretic Pept 316 pg/mL (0-450); Osmolality Calculated 297 mOsm/kg (285-295); Potassium 4.1 mmol/L (3.5-5.1); Sodium 142 mmol/L (136-145); Total Protein 7.4 g/dL (6.4-8.2)
== END 2022-09-12 11:55 | disposition home or self-care (01) ==
LOC: CHSLAB 12:00
PROVIDERS: PCP Internal Medicine; Visit Provider Internal Medicine
DX: R06.00 Dyspnea, unspecified (principal); R13.10 Dysphagia, unspecified; M54.50 Low back pain, unspecified; M43.16 Spondylolisthesis, lumbar region; M12.88 Other specific arthropathies, not elsewhere classified, other specified site
CPT/HCPCS: 36415; 71046; 72100; 80053; 81001; 83880; 85025; 85380

== ENCOUNTER 2022-09-18 08:06 | Outpatient (CLI) | payer MEDICARE, SELFPAY ==
--- NOTE | ~2022-09-18 | XR_ITS ---
EXAMINATION: XR UGI w barium swallow DATE: 09/18/2022 08:54 INDICATION: Dysphagia. TECHNIQUE: The patient drank thick barium, gas-producing crystals, and thin barium. Fluoroscopy of th e esophagus, stomach, and proximal small bowel was performed. Fluoroscopy exposure time was 0.6 minut es. The total number of images was 261. Total dose-area product was 2.172 Gy-cm^2. COMPARISON: None. FINDINGS: There is no mass or stricture of the esophagus. Esophageal motility is normal. There is a s mall sliding hiatal hernia. There was gastroesophageal reflux with provocative maneuvers. The stomach and proximal small bowel show normal folding patterns. IMPRESSION: 1. Small sliding hiatal hernia. 2. Gastroesophageal reflux with provocative maneuvers. Reviewed, dictated and finalized at location L.
== END 2022-09-18 08:07 | disposition home or self-care (01) ==
LOC: CHSIMG 08:07
PROVIDERS: PCP Internal Medicine; Visit Provider Internal Medicine
DX: R06.00 Dyspnea, unspecified (principal); R13.10 Dysphagia, unspecified; M54.50 Low back pain, unspecified; K44.9 Diaphragmatic hernia without obstruction or gangrene; K21.9 Gastro-esophageal reflux disease without esophagitis
CPT/HCPCS: 74240

== ENCOUNTER 2022-09-24 14:46 | Outpatient (RCR) | payer MEDICARE, SELFPAY ==
--- NOTE | 2022-09-24 16:20 | OPREHPOC ---
Outpatient Therapy Plan of Care This is a Multidisciplinary Plan of Care that may contain components documented by all disciplines (PT, OT, and ST.) PT Problem 1 PT Problem #1 Knowledge Deficit PT Goal 1 Goal Patient to demonstrate independence with HEP Target Visit 10 PT Problem 2 PT Problem #2 Pain PT Goal 1 Goal Patient to demonstrate highet pain at 2/10 Target Visit 10 PT Problem 3 PT Problem #3 Impaired Strength PT Goal 1 Goal Patient to demonstrate 5/5 strength of B LE to improve ability to perform heavy house hold tasks at PLOF Target Visit 10 PT Problem 4 PT Problem #4 Impaired Functional Mobil PT Goal 1 Goal 1. Patient to report ability to stand for >30 minutes to perform house hold tasks without increase in pain 2. Patient to demonstrate no restriction of B piriformis and HS flexibility to 15 deg to decrease pain with prolonged positioning Target Visit 10
--- NOTE | 2022-09-24 16:20 | PTOPEVAL1 ---
Assessment and note entered by Ellie De Los Santos DPT Evaluation Information Assessment Status Evaluation Diagnosis low back pain Onset 09/13/22 Subjective Information Patient reports she has had back pain that has increased over the last 3-4 months. She reports pain is at her waist line and is decreased with leaning forward. She reports pain stays in the low back. X-rays show anterolisthesis of L4 over L5. She reports most pain is present when she stands for greater than 10 minutes. She reports prior her pain was manageable and could complete all ADLs. Patient reports she is retired. Reported Pain Level Pain Score 0: Self Report Assessment PT Clinical Summary Patient is a 77 year old female who presents to PT with low back pain. She demonstrates decreased B LE strength, decreased LE flexibility and decreased standing tolerance limiting her ability to wash dishes, fold laundry and complete heavy house hold tasks. She would benefit from skilled PT to address impairments and return to PLOF. Plan of Care Interventions Gait Training,Hot Pack/Cold Pack,Manual Therapy, Mechanical Traction,Neuro Re-education,Patient/ Caregiver Educati,Therapeutic Activities, Therapeutic Exercise PT Services Indicated Yes Treatment Frequency and 2x weekly for 10 visits Duration These treatments will address the objective and functional deficits as defined above. The patient will be advanced safely and appropriately in order for the patient to progress towards his/her prior level of function. Additional exercises will be introduced and as well as a comprehensive home exercise program upon discharge, if needed, ?to ensure carryover of functional gains achieved in the clinic. This treatment plan has been reviewed and agreement upon by the patient.
--- NOTE | 2022-10-31 10:49 | PTOPPROG ---
Assessment and note entered by Cynthia Melgar, PT Evaluation Information Assessment Status Progress Diagnosis low back pain Onset 09/13/22 Subjective Information Dede reports her lower back pain has improved overall since initiating PT. She is able to stand for a longer period before symptoms start. Her pain stays in the lower back and does not go into the LE. She is now able to stand for about 6 minutes until twinging in the back begins. If she moves her legs, she does have less pain. She feels she has improved 40-50% overall since initiating PT. Assessment PT Clinical Summary Dede Johnson has completed 10 skilled PT visits for low back pain. She is reporting a 40-50% overall improvement but continues to have low back pain with standing more than 6 minutes leading to ongoing difficulty with washing dishes, folding laundry, and performing self care standing at the bathroom sink. She objectively demonstrates improved lumbar AROM, improved hip and core strength, and improved standing tolerance. She continues to demonstrate decreased core strength, decreased hamstring flexibility, and decreased standing tolerance. She will continue to benefit from skilled PT to further address these limitations. Plan of Care Interventions Hot Pack/Cold Pack,Manual Therapy,Neuro Re- education,Patient/Caregiver Educati,Therapeutic Activities,Therapeutic Exercise PT Services Indicated Yes Treatment Frequency and 2 times a week for 8 visits Duration These treatments will address the objective and functional deficits as defined above. The patient will be advanced safely and appropriately in order for the patient to progress towards his/her prior level of function. Additional exercises will be introduced and as well as a comprehensive home exercise program upon discharge, if needed, ?to ensure carryover of functional gains achieved in the clinic. This treatment plan has been reviewed and agreement upon by the patient.
--- NOTE | 2022-11-30 12:00 | OPREHPOC ---
Outpatient Therapy Plan of Care This is a Multidisciplinary Plan of Care that may contain components documented by all disciplines (PT, OT, and ST.) PT Problem 1 PT Problem #1 Knowledge Deficit PT Goal 1 Goal Patient to demonstrate independence with HEP Target Visit 18 Progress Met PT Problem 2 PT Problem #2 Pain PT Goal 1 Goal Patient to demonstrate highest pain at 2/10 Target Visit 18 Progress Not Met PT Problem 3 PT Problem #3 Impaired Strength PT Goal 1 Goal Patient to demonstrate 5/5 strength of B LE to improve ability to perform heavy house hold tasks at PLOF Target Visit 18 Progress Met PT Problem 4 PT Problem #4 Impaired Functional Mobil PT Goal 1 Goal 1. Patient to report ability to stand for >30 minutes to perform house hold tasks without increase in pain 2. Patient to demonstrate no restriction of B piriformis and HS flexibility to 15 deg to decrease pain with prolonged positioning Target Visit 18 Progress Partially Met
--- NOTE | 2022-11-30 12:00 | PTOPDC ---
Assessment and note entered by Ellie De Los Santos DPT Evaluation Information Assessment Status Discharge Diagnosis low back pain Onset 09/13/22 Subjective Information Patient reports that pain has continued to improve . She reports that pain is only present with standing still for long periods of time. Patient reports independent with HEP. Reported Pain Level Pain Score 0: Self Report Assessment PT Clinical Summary Patient was seen for 18 visits of skilled PT. Patient met or partially met all goals set during POC. Patient demonstrates improved LE strength and standing tolerance with improved ability to complete all house hold tasks. Patient reports independence with HEP and is appropriate for DC at this time. Plan of Care PT Services Indicated No
== END 2022-11-30 16:13 | disposition home or self-care (01) ==
LOC: CHSPT 14:46
PROVIDERS: PCP Internal Medicine; Visit Provider Internal Medicine
DX: M54.50 Low back pain, unspecified (principal)
CPT/HCPCS: 97110; 97112; 97150; 97161

== ENCOUNTER 2022-10-08 08:41 | Outpatient (CLI) | payer MEDICARE, SELFPAY ==
--- NOTE | 2022-10-08 08:51 | EST_ITS ---
Patient Info Name: Dede Johnson Age: 77 years : 1945 Gender: Female Ht: 62 in Wt: 166 lbs BSA: 1.84 m2 HR: 71 bpm BP: 143 / 82 mmHg Heart Rhythm: Sinus Rhythm Technical Quality: Excellent Exam Date: 10/08/2022 9:55 AM Exam Location: [facility] Patient Status: Outpatient Admit Date: 10/08/2022 Staff Ordering Physician: Baron Fleming MD Attending Provider: Myrna Rodriguez CEP Exercise Technologist: Keisha Hernandez CRT Exercise Physician: Myrna Rodriguez CEP Exam Type: CA stress mekhi w NM Study Info Indications SOB - A nuclear stress test was performed. History/Risk Factors Hypertension: Yes Dyslipidemia: Yes History/Risk Factors Dyslipidemia. Hypertension. Family HX. Summary 1. 1. Negative lexiscan stress test for ischemic ST changes by ECG criteria. 2. 2. Baseline hypertension. 3. 3. Nuclear scan to follow and will be reported separately. Please correlate with it. Protocol: LEXISCAN Stress ECG Details Stage: REST Duration (min): 0 min : 52 sec HR (bpm): 71 SBP (mmHg): 143 DBP (mmHg): 82 Stage: REST Duration (min): 5 min : 56 sec HR (bpm): 72 SBP (mmHg): 143 DBP (mmHg): 82 Stage: STAGE 1 Duration (min): 0 min : 14 sec HR (bpm): 69 SBP (mmHg): 143 DBP (mmHg): 82 Stage: RECOVERY Duration (min): 0 min : 45 sec HR (bpm): 95 SBP (mmHg): 143 DBP (mmHg): 82 Stage: RECOVERY Duration (min): 1 min : 45 sec HR (bpm): 97 SBP (mmHg): 143 DBP (mmHg): 82 Stage: RECOVERY Duration (min): 2 min : 45 sec HR (bpm): 96 SBP (mmHg): 133 DBP (mmHg): 75 Stage: RECOVERY Duration (min): 3 min : 45 sec HR (bpm): 96 SBP (mmHg): 139 DBP (mmHg): 76 Stage: RECOVERY Duration (min): 4 min : 45 sec HR (bpm): 94 SBP (mmHg): 142 DBP (mmHg): 77 Stage: RECOVERY Duration (min): 5 min : 45 sec HR (bpm): 92 SBP (mmHg): 146 DBP (mmHg): 81 Stage: RECOVERY Duration (min): 6 min : 2 sec HR (bpm): 91 SBP (mmHg): 146 DBP (mmHg): 81 Rest HR: 72 bpm Peak HR: 98 bpm Rest Sys BP: 143 mmHg Peak Sys BP: 152 mmHg Max Pred HR: 144 bpm % Max Pred HR: 68 % Target HR: 122 bpm Max RPP: 14,896 bpm*mmHg Target HR Summary: Pt reached 68% THR BP Response: Patient exhibited a hypertensive response with stress Termination Reason: Completed Protocol Cardiac Symptoms: flushing, Shortness of breath Total Time: 0 min : 14 sec Rest Ybarra BP: 82 mmHg Peak Ybarra BP: 76 mmHg Total Dose: 0.4 mg Resting ECG Normal sinus rhythm, IRBBB, borderline T wave in anterior leads. Stress ECG No abnormal ST/T wave changes. Arrhythmias None. Report Signatures
--- NOTE | 2022-10-08 13:15 | WPDCARIOSTRE ---
Nuclear Stress Test INDICATIONS Indications: Dyspnea PROCEDURE Procedure Performed: Myocardial Perf Spect-Multi Procedure: Patient underwent a lexiscan stress test and immediately was injected with 33.3 mCi of cardiolyte. Multiple tomographic images were obtained. These are of good quality. There is no evidence of perfusion defects with stress imaging. A separate resting images were obtained after patient was injected with 10.3 mCi of cardiolyte. Multiple tomographic images were obtained. These are of good quality. There is no evidence of perfusion defects with rest imaging. CONCLUSION Conclusion: 1. Normal myocardial perfusion imaging demonstrating no perfusion defects with stress or rest imaging. 2. No evidence of reversible ischemia. 3. Left ventriculogram demonstrates normal measured ejection fraction of 78% with no wall motion abnormalities. Left ventricle is small with end diastolic volume of 29 ml. 4. TID 1.06 is normal.
== END 2022-10-08 08:42 | disposition home or self-care (01) ==
LOC: CHSIMG 08:43
PROVIDERS: PCP Internal Medicine; Visit Provider Internal Medicine
DX: R06.00 Dyspnea, unspecified (principal)
CPT/HCPCS: 78452; 93017; A9502; J2785

== ENCOUNTER 2022-10-19 08:47 | Outpatient (CLI) | payer MEDICARE, SELFPAY | END 2022-10-19 08:48 | disposition home or self-care (01) | LOC: CHSCARD 08:52 | PROVIDERS: PCP Internal Medicine; Visit Provider Internal Medicine | DX: R06.02 Shortness of breath (principal); R94.2 Abnormal results of pulmonary function studies | CPT/HCPCS: 94060; 94726; 94729 ==

== ENCOUNTER 2022-11-01 12:10 | Outpatient (CLI) | payer MEDICARE, SELFPAY ==
--- NOTE | ~2022-11-01 | MM_ITS ---
EXAMINATION: MM screening alisa RT w nicolas HISTORY: Screening mammogram TECHNIQUE: Craniocaudal and mediolateral oblique 3-D tomosynthesis images were obtained and synthetic 2-D images were generated. CAD analysis was submitted and interpreted. COMPARISON: 11/08/2021, 10/27/2020, 10/27/2019 right screening mammogram examinations BREAST PARENCHYMAL COMPOSITION: There are scattered areas of fibroglandular density. FINDINGS: History of left mastectomy for breast cancer. There is no evidence of suspicious mass, calc ification, or architectural distortion to suggest malignancy in either breast. There has been no susp icious interval change. IMPRESSION: 1. Status post left mastectomy for breast cancer. No mammographic evidence of right breast malignancy . 2. Recommend routine screening mammography in one year. BI-RADS Category 1: Negative Reviewed, dictated and finalized at location A. IMPRESSION: 1. Status post left mastectomy for breast cancer. No mammographic evidence of r ight breast malignancy. 2. Recommend routine screening mammography in one year. BI-RADS Category 1: Negative
== END 2022-11-01 12:11 | disposition home or self-care (01) ==
LOC: CHSIMG 12:11
PROVIDERS: PCP Internal Medicine; Visit Provider Internal Medicine Medical Oncology
DX: Z12.31 Encounter for screening mammogram for malignant neoplasm of breast (principal)
CPT/HCPCS: 77063; 77067

== ENCOUNTER 2023-03-26 08:25 | Outpatient (CLI) | payer MEDICARE, SELFPAY ==
[2023-03-26 08:41] LABS: Basophils Absolute Auto 0.06 K/mm3 (0.00-0.10); Basophils Percent Auto 1.2 % (0.0-1.0); Eosinophils Absolute Auto 0.33 K/mm3 (0.02-0.50); Eosinophils Percent Auto 6.7 % (1.0-6.0); Hematocrit 41.8 % (35.0-42.0); Hemoglobin 13.1 g/dL (11.7-13.8); Immature Granulocyte Absolute 0.01 K/mm3 (0.00-0.00); Immature Granulocyte Percent A 0.2 % (0.0-0.0); Lymphocytes Absolute Auto 1.21 K/mm3 (1.10-4.50); Lymphocytes Percent Auto 24.4 % (18.0-42.0); Mean Corpuscular HGB Conc 31.3 g/dL (32.0-36.0); Mean Corpuscular Hemoglobin 29.2 pg (27.0-31.0); Mean Corpuscular Volume 93.1 fL (78.0-102.0); Mean Platelet Volume 9.2 fl (9.2-11.8); Monocytes Absolute Auto 0.44 K/mm3 (0.10-0.90); Monocytes Percent Auto 8.9 % (2.0-11.0); Neutrophils Absolute Auto 2.9 K/mm3 (1.7-7.2); Neutrophils Percent Auto 58.6 % (50.0-70.0); Platelet Count Result 306 K/mm3 (150-420); Red Blood Count 4.49 M/mm3 (4.20-5.40); Red Cell Distribution Width 13.2 % (11.6-14.4)
[2023-03-26 08:45] LABS: Appearance Urine Clear (Clear); Bilirubin Urine Negative (Negative); Blood Urine Trace-Intact (Negative); Color Urine Light Yellow (Yellow); Glucose Urine UA Negative (Negative); Ketones Urine Negative (Negative); Leukocyte Esterase Ur Trace LEU/UL (Negative); Nitrate Urine Negative (Negative); Protein Urine Negative (Negative); Specific Grav Ur 1.015 (1.010-1.020); Urobilinogen Urine 0.2 mg/dL (0.2-1.0)
[2023-03-26 08:51] LABS: Add Urine Microscopic? YES; Bacteria Urine Trace /hpf; RBC Urine 0-2 /hpf (0-2); Squamous Epithelial Cell Urine Rare /hpf (Few); WBC Urine 0-3 /hpf (0-3)
[2023-03-26 09:56] LABS: Alanine Aminotransferase 37 U/L (14-59); Albumin Level 3.8 g/dL (3.4-5.0); Alkaline Phosphatase 75 U/L (46-116); Anion Gap 5 mmol/L (8-16); Aspartate Amino Transferase 21 U/L (15-37); Blood Urea Nitrogen 21 mg/dL (7-18); Calcium 8.8 mg/dL (8.5-10.1); Carbon Dioxide 33 mmol/L (21-32); Chloride 103 mmol/L (98-108); Cholesterol 149 mg/dL (0-200); Estimated Glomerular Filt Rate 60; Glucose 137 mg/dL (70-99); HDL Direct 63 mg/dL (40-60); LDL Cholesterol Calculated 68 mg/dL (<130); Osmolality Calculated 297 mOsm/kg (285-295); Potassium 4.3 mmol/L (3.5-5.1); Sodium 141 mmol/L (136-145); Thyroid Stimulating Hormone 1.31 uIU/mL (0.36-3.74); Total Protein 6.9 g/dL (6.4-8.2); Triglycerides 92 mg/dL (0-150)
== END 2023-03-26 08:26 | disposition home or self-care (01) ==
LOC: CHSLAB 08:29
PROVIDERS: PCP Internal Medicine; Visit Provider Internal Medicine
DX: I10 Essential (primary) hypertension (principal); E78.5 Hyperlipidemia, unspecified; R73.09 Other abnormal glucose
CPT/HCPCS: 36415; 80053; 80061; 81001; 83036; 84443; 85025

== ENCOUNTER 2023-05-31 13:56 | Outpatient (CLI) | payer MEDICARE, SELFPAY ==
[2023-05-31 14:51] LABS: SARS-CoV-2 RNA PCR Positive (Negative)
== END 2023-05-31 13:57 | disposition home or self-care (01) ==
LOC: CHSLAB 13:57
PROVIDERS: PCP Internal Medicine; Visit Provider Internal Medicine
DX: U07.1 COVID-19 (principal)
CPT/HCPCS: 87635

== ENCOUNTER 2023-09-25 10:15 | Outpatient (CLI) | payer MEDICARE, SELFPAY ==
[2023-09-25 11:21] LABS: Creatinine Urine 125.37 mg/dL (40-278); Hemoglobin A1C 6.4 % (<5.7); MALB Creatinine Ratio 6.7 mg/g (0-30); Microalbumin Urine Random 8.4 mg/L
[2023-09-25 11:38] LABS: Alanine Aminotransferase 33 U/L (14-59); Albumin Level 3.8 g/dL (3.4-5.0); Alkaline Phosphatase 87 U/L (46-116); Anion Gap 8 mmol/L (4-12); Aspartate Amino Transferase 21 U/L (15-37); Bilirubin,Total 1.4 mg/dL (0.00-1.00); Blood Urea Nitrogen 19 mg/dL (7-18); Calcium 9.1 mg/dL (8.5-10.1); Carbon Dioxide 29 mmol/L (21-32); Chloride 104 mmol/L (98-108); Cholesterol 165 mg/dL (0-200); Estimated Glomerular Filt Rate 57; Glucose 115 mg/dL (70-99); HDL Direct 53 mg/dL (40-60); LDL Cholesterol Calculated 88 mg/dL (<130); Osmolality Calculated 295 mOsm/kg (285-295); Potassium 4.6 mmol/L (3.5-5.1); Sodium 141 mmol/L (136-145); Total Protein 7.2 g/dL (6.4-8.2); Triglycerides 119 mg/dL (0-150)
== END 2023-09-25 10:16 | disposition home or self-care (01) ==
LOC: CHSLAB 10:17
PROVIDERS: PCP Internal Medicine; Visit Provider Internal Medicine
DX: E78.5 Hyperlipidemia, unspecified (principal); E11.9 Type 2 diabetes mellitus without complications
CPT/HCPCS: 36415; 80053; 80061; 82043; 83036

== ENCOUNTER 2023-11-04 11:43 | Outpatient (CLI) | payer MEDICARE, SELFPAY ==
--- NOTE | ~2023-11-04 | MM_ITS ---
EXAMINATION: MM screening alisa RT w nicolas HISTORY: Screening TECHNIQUE: Craniocaudal and mediolateral oblique 3-D tomosynthesis images were obtained and synthetic 2-D images were generated. CAD analysis was submitted and interpreted. COMPARISON: Comparison to multiple prior studies sequentially, with oldest reviewed study dated 11/2020. BREAST PARENCHYMAL COMPOSITION: Not dense: There are scattered areas of fibroglandular density. FINDINGS: There is no evidence of suspicious mass, calcification, or architectural distortion to sugg est malignancy in the right breast. There has been no suspicious interval change. IMPRESSION: 1. No mammographic evidence of malignancy. 2. Recommend routine screening mammography in one year. BI-RADS Category 1: Negative Reviewed, dictated and finalized at location B.
--- NOTE | ~2023-11-04 | DEXA_ITS ---
? Bone Density Report? Name:? NYA LOCKHART Patient ID:??? [id number] Age:? 78 Sex:? Female Ethnicity:? White Date of : 1945 Indication: postmenopausal; screening for osteoporosis; height loss; prior fracture; cancer; Referring Provider: Baron Fleming Study: Bone densitometry was performed. Exam Date: November 04, 2023 Accession number: [id number] Bone Density: Region? BMD??? T-score? Z-score?? Classification AP Spine(L1, L2, L3)? 0.873?? -1.3?1.2? Osteopenia Femoral Neck (Left)? 0.604?? -2.2? 0.0? Osteopenia Total Hip (Left)? 0.804?? -1.1? 0.8? Osteopenia Femoral Neck (Right)? 0.651?? -1.8? 0.4? Osteopenia Total Hip (Right)? 0.797?? -1.2? 0.7? Osteopenia Femoral Neck Mean? 0.627?? -2.0? 0.2? Osteopenia Total Hip Mean? 0.800?? -1.2? 0.8? Osteopenia World Health Organization criteria for BMD impression classify patients as: Normal (T-score at or above -1.0), Osteopenia (T-score between -1.0 and -2.5), or Osteoporosis (T-score at or below -2.5). 10-year Fracture Risk(1): Major Osteoporotic Fracture? 22% Hip Fracture? 5.8% Reported Risk Factors: [place] (), Neck BMD=0.604, BMI=29.6, previous fracture (1) FRAX? Version 3.08. Fracture probability calculated for an untreated patient. Fracture probability may be lower if the patient has received treatment. Clinical Information Provided by Patient: Has had a low trauma fracture Has used the following medications: Vitamin D, Calcium Has the following medical conditions: Cancer Patient maximum height was 64 Menopause Age: 51 No regular weight bearing exercise Drinks caffeinated beverages Onset of menses at age 13 Number of children 0 Impression: The patient has low bone mass, based on the Left Femoral Neck T- score. The patient has risk factors, including: previous fracture. Discussion: BONE DENSITY IS LOW AT ONE OR MORE SKELETAL SITES. This patient's lowest T-score is low at one or more skeletal sites.? It meets the World Health Organization's (WHO) criteria for ?low bone mass?? (T-score between -1.0 and -2.5).? The patient's 10-year risk of fracture as calculated by FRAX is less than the threshold where pharmacological therapy is recommended by the National Osteoporosis Foundation (NOF).? However, all treatment decisions require clinical judgment and consideration of individual patient factors, including patient preferences, comorbidities, previous drug use, risk factors not captured in the FRAX model (e.g., frailty, falls, vitamin D deficiency, increased bone turnover, interval significant decline in bone density) and possible under or overesti
== END 2023-11-04 11:44 ==
LOC: CHSIMG 11:46
PROVIDERS: PCP Internal Medicine; Visit Provider Internal Medicine
DX: Z12.31 Encounter for screening mammogram for malignant neoplasm of breast (principal); Z78.0 Asymptomatic menopausal state; M85.89 Other specified disorders of bone density and structure, multiple sites
CPT/HCPCS: 77063; 77067; 77080

== ENCOUNTER 2024-04-02 10:01 | Outpatient (CLI) | payer MEDICARE, SELFPAY ==
[2024-04-02 10:19] LABS: Add Urine Microscopic? NO; Appearance Urine Clear (Clear); Bilirubin Urine Negative (Negative); Blood Urine Trace-intact (Negative); Color Urine Light Yellow (Yellow); Glucose Urine UA Negative (Negative); Hematocrit 42.4 % (35.0-42.0); Hemoglobin 13.8 g/dL (11.7-13.8); Ketones Urine Negative (Negative); Leukocyte Esterase Ur Negative (Negative); Mean Corpuscular HGB Conc 32.5 g/dL (32-36); Mean Corpuscular Hemoglobin 29.4 pg (27.0-31.0); Mean Corpuscular Volume 90.4 fL (78.0-102.0); Mean Platelet Volume 9.7 fl (9.2-11.8); Nitrate Urine Negative (Negative); Platelet Count Result 305 K/mm3 (150-420); Protein Urine Negative (Negative); Red Blood Count 4.69 M/mm3 (4.20-5.40); Red Cell Distribution Width 12.7 % (11.6-14.4); Specific Grav Ur <= 1.005 (1.010-1.020); Urobilinogen Urine 0.2 mg/dL (0.2-1.0); White Blood Count 5.6 K/mm3 (4.8-10.8)
[2024-04-02 10:49] LABS: Hemoglobin A1C 6.5 % (<5.7)
[2024-04-02 10:58] LABS: Alanine Aminotransferase 24 U/L (14-59); Albumin Level 3.9 g/dL (3.4-5.0); Alkaline Phosphatase 84 U/L (46-116); Anion Gap 7 mmol/L (4-12); Aspartate Amino Transferase 18 U/L (15-37); Bilirubin,Total 1.6 mg/dL (0.00-1.00); Blood Urea Nitrogen 22 mg/dL (7-18); Calcium 9.5 mg/dL (8.5-10.1); Carbon Dioxide 31 mmol/L (21-32); Chloride 103 mmol/L (98-108); Cholesterol 167 mg/dL (0-200); Estimated Glomerular Filt Rate 55; Glucose 129 mg/dL (70-99); HDL Direct 60 mg/dL (40-60); LDL Cholesterol Calculated 85 mg/dL (<130); Osmolality Calculated 297 mOsm/kg (285-295); Sodium 141 mmol/L (136-145); Thyroid Stimulating Hormone 1.11 uIU/mL (0.36-3.74); Total Protein 7.1 g/dL (6.4-8.2); Triglycerides 110 mg/dL (0-150)
== END 2024-04-02 10:02 | disposition home or self-care (01) ==
LOC: CHSLAB 10:02
PROVIDERS: PCP Internal Medicine; Visit Provider Internal Medicine
DX: I10 Essential (primary) hypertension (principal); E11.9 Type 2 diabetes mellitus without complications; E78.5 Hyperlipidemia, unspecified
CPT/HCPCS: 36415; 80053; 80061; 81003; 83036; 84443; 85027

== ENCOUNTER 2024-04-20 10:13 | Outpatient (CLI) | payer MEDICARE, SELFPAY ==
--- NOTE | ~2024-04-20 | XR_ITS ---
3 VIEWS PARANASAL SINUSES Ordering provider: Baron Fleming MD History: . Chronic Sinusitis, Hemoptysis,X6MO,NKI . Comparison: None. FINDINGS: BONES: No acute fracture as visualized. PARANASAL SINUSES: Well aerated. No air fluid levels. SOFT TISSUES: Normal. IMPRESSION: NO EVIDENCE OF SINUS DISEASE. Reviewed, dictated and finalized at location A. RANS SERVICE OFFICER
--- NOTE | ~2024-04-20 | XR_ITS ---
CHEST RADIOGRAPH, PA AND LATERAL CLINICAL HISTORY: Chronic Sinusitis, Hemoptysis,X6MO,NKI . COMPARISON: 09/12/2022 TECHNIQUE: PA and lateral views of the chest. FINDINGS The cardiomediastinal silhouette is unremarkable. The lungs are clear. Visualized osseous structures and soft tissues are unremarkable. IMPRESSION: No focal infiltrate or effusion. Reviewed, dictated and finalized at location A. L PERSONNEL SERVICES DIRECTOR
== END 2024-04-20 10:14 | disposition home or self-care (01) ==
LOC: CHSLAB 10:15 → CHSIMG 10:19
PROVIDERS: PCP Internal Medicine; Visit Provider Internal Medicine
DX: J32.9 Chronic sinusitis, unspecified (principal); R04.2 Hemoptysis
CPT/HCPCS: 70220; 71046

== ENCOUNTER 2024-10-05 09:30 | Outpatient (CLI) | payer MEDICARE, SELFPAY ==
--- OUTSIDE RECORDS SUMMARY | 2024-10-05 10:09 | XMS_ITS | Continuity of Care Document ---
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 [address] , [address], [place], [address], [place]. tel:[phone] Family History Family Member Type Diagnosis Age At Onset No Information Payers Payer name Insurance type Covered green party ID Authoriza tion(s) No Information Social History Type Description Quantity Date Captured Comments Sex Female Smoking Status No Information Chief Complaint And Reason For Visit No Information Reason For Referral Reason For Referral No Information History Of Present Illness Encounter Date Complaint History Of Prese nt Illness No Information Functional Status Date Functional Assessmen t No Information Instructions Date Instruction Additional Infor mation No Information Assessments Type Assessment Date No Information Patient Care Teams Name Effective Dates (start - stop) Status Members No Information
--- OUTSIDE RECORDS SUMMARY | 2024-10-05 10:09 | XMS_ITS | Encounter Summary ---
Author Organization [facility] Healthcare Address [address] [place] [id number] Care Team Providers Care Children Counselor Name Role Phone Baron Fleming MD Primary Care Provider Anoop Taylor MD PhD Unavailable [phone] Kevny Lemus MD Unavailable [phone] Encounter Details Date Type Department Care Team (Latest Contact Info) Description 09/09/2024 Results Follow-Up [facility] Gastroenterology at [address] [place] [address] Gregor Alanis MD [address] [place] [address] [address] [place] [address] Surgical pathology Social History Tobacco Use Types Packs/Day Years Used Date Smoking Tobacco: Never Smokeless Tobacco: Never Alcohol Use Standard Drinks/Week Comments Yes 0 (1 standard drink = 0.6 oz pur e alcohol) Rare AUDIT-C Answer Date Recorded Q1: How often do you have a drink containing alcohol? Never 08/31/2024 Q2: How many drinks containi ng alcohol do you have on a typical day when you are drinking? Patient does not drink Q3: How often do you have si x or more drinks on one occasion? Never 08/31/2024 Personal Safety Answer Date Recorded Have you ever been in or are you currently in a harmful physical or emotional relationship or is someone making you feel afraid or unsafe? 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
--- OUTSIDE RECORDS SUMMARY | 2024-10-05 10:09 | XMS_ITS | Clinical Summary ---
Author Organization [facility] Medical Office Building B Address [address] [place] [id number] Care Team Providers Care Visual Communications Instructor Name Role Phone Baron Fleming MD Primary Care Provider [phone] Anoop Taylor MD PhD Unavailable [phone] Kevyn Lemus MD Unavailable [phone] Allergies Active Allergy Reactions Criticality Noted Date Comments Gemifloxacin Itching Low 10/11/2015 Face became red Medications atenolol (TENORMIN) 25 mg tablet Take 1 tablet (25 mg total) by mouth 3 (three) times a day 1 tablet in am and 2 in the pm 04/30/19 19 Active atorvastatin (LIPITOR) 10 mg tablet Take 1 tablet (10 mg total) by mouth daily 04/30/19 19 Active gabapentin (NEURONTIN) 100 mg capsule Take 1 capsule (100 mg total) by mouth 2 (two) times a day 04/19/20 18 Active LUMIGAN 0.01 % ophthalmic drops Administer 1 drop into both eyes nightly 03/29/20 18 Active nortriptyline (PAMELOR) 25 mg capsule Take 1 capsule (25 mg total) by mouth nightly Active ascorbic acid (VITAMIN C) 500 mg tablet,chewable Take 1 tablet/chew tab (500 mg total) by mouth 2 (two) times a day Active peg 400-propylene glycol (SYSTANE) 0.4-0.3 % ophthalmic solution Administer 1 drop into both eyes daily Active cyanocobalamin, vitamin B-12, 5,000 mcg tablet, sublingual Place 5,000 mcg under the tongue daily Active sxsmbuhc-lnt-AD-l ycopen-lutein 0.4-300-250 mg-mcg-mcg tabletIndications :Vitamin Deficiency Prevention Take 1 tablet by mouth daily Centrum silver Active tissue resp fact-shark mac oil (PREPARATION H) rectal ointment Insert 1 application (deactivated) into the rectum as needed for hemorrhoids Active bismuth subsalicylate (PEPTO-BISMOL) suspension Take 15 mL by mouth as needed for indigestion Active acetaminophen (TYLENOL) 500 mg tablet Take 1 tablet (500 mg total) by mouth every 6 (six) hours as needed for pain Active vitamin E (AQUASOL E) 400 unit capsule Take 1 capsule (400 Units total) by mouth 2 (two) times a day Active calcium citrate-vitamin D3 250 mg-5 mcg (200 unit) tablet Take by mouth 2 (two) times a day Active albuterol HFA (PROVENTIL HFA,VENTOLIN HFA,PROAIR HFA) 90 mcg/actuation inhaler Inhale 2 puffs every 6 (six) hours as needed for wheezing Active montelukast (SINGULAIR) 10 mg tablet Take 1 tablet (10 mg total) by mouth nightly Active senna (SENOKOT) 8.6 mg tablet Take 1-2 nightly as needed for constipation issue. 01/08/20 24 Active flaxseed oiL 1,000 mg capsule Take 1 capsule (1,000 mg total) by mouth daily Active letrozole (FEMARA) 2.5 mg tabletIndications :Malignant neoplasm of upper-outer quadrant of left breast in female, estrogen receptor positive (HCC) Take 1 tablet (2.5 mg total) by mouth daily 30 tablet 02/27/20 24 Active fexofenadine (AGNIESZKA) 180 mg tablet Take 1 tablet (180 mg total) by mouth daily Active famotidine (PEPCID) 40 mg tablet Take 1 tablet (40 mg total) by mouth daily 30 tablet 09/02/19 25 026 Active Active Problems Problem Noted Date Diagnosed Date Schatzki's ring of distal esophagus 09/08/2024 Erosive esophagitis 09/08/2024 Gastric intestinal metaplasia 09/08/2024 Hiatal hernia 09/08/2024 Food sticks on swallowing 09/08/2024 Sessile serrated polyp of colon 01/08/2024 Encounter for screening colonoscopy 06/11/2023 Personal history of colonic polyps 06/11/2023 Malignant neoplasm of upper- outer quadrant of left breast in female, estrogen receptor positive 01/07/2020 Cancer Staging:Pathologic stage from 12/18/2019:Stage IA(pT1c, pN1a(sn), cM0, G1, ER+, WA+, HER2-, Oncotype DX score: 15) - Signed by Anoop Taylor MD PhD on 01/28/2020 History of colon polyps 05/16/2018 Overview (05/16/2018): Added automatically from request for surgery [id number] Assessment & Plan (07/10/2018 10:05 AM CDT): She had adenoma polyp on recent colonoscopy and next colonoscopy should be in 5 years. Irritable bowel syndrome wit h both constipation and diarrhea 05/08/2018 Assessment & Plan (07/10/2018 10:04 AM CDT): Overall she is doing well. Colonoscopy and random biopsy was unremarkable. No specific treatment is needed at this point. Discussed healthy diet with the patient. Assessment & Plan (05/08/2018 11:43 AM [employer]): Will schedule colonoscopy for full evaluation since last colonoscopy was 5 years ago. Gastroesophageal reflux disease without esophagi tis 05/08/2018 Assessment & Plan (07/10/2018 10:04 AM CDT): Continue Pepcid 40 mg daily. Otherwise no worrisome signs. Assessment & Plan (05/08/2018 11:42 AM [employer]): Will start pepcid daily. Dyspepsia 05/08/2018 Assessment & Plan (07/10/2018 10:04 AM CDT): Continue has active 3 times daily with meal. I also discussed with the patient to try peppermint oil once daily as it may help with her dyspepsia and gas symptoms. Assessment & Plan (05/08/2018 11:42 AM [employer]): Chronic symptoms likely functional, possible bacterial over growth plus the IBS, will try Flagyl to see if it helps. Will stop the probiotics. Encounters Date Type Department Care Team Description 09/17/19 Telephone [facility] [address] [place] [address] Medical Office [address] [place] [address] Alesha An NP 09/10/19 Results Follow-Up [facility] Gastroenterology at [address] [place] [address] Gregor Alanis MD Surgical pathology 09/09/19 10:00 AM CDT Office Visit [facility] Gastroenterology at [address] [place] [address] Jame Bhakta NP Schatzki's ring of distal esophagus (Primary Dx); Food sticks on swallowing; Erosive esophagitis; Hiatal hernia; Gastric intestinal metaplasia; Sessile serrated polyp of colon; Irritable bowel syndrome with both constipation and diarrhea 09/02/19 1:38 PM CDT Anesthesia Event [address] [address] Jered Bashir MD 09/02/19 12:30 PM CDT - 09/02/19 1:00 PM CDT Surgery [address] [address] Gregor Alanis MD ESOPHAGOGASTRODUODENOSCOPY BIOPSY 09/02/19 10:54 AM CDT - 09/02/19 3:08 PM CDT Hospital Encounter [address] [address] Gregor Alanis MD Dyspepsia Discharge Disposition: Discharge to home or self care 07/25/19 Telephone [facility] Gastroenterology at [address] [place] [address] Roshni Saab from Last 3 Months Immunizations Immunization Administration Dates Next Due Influenza, Quadrivalent, Spl it, Intramuscular 01/21/2020 Influenza, Quadrivalent, Spl it, Preservative Free, Intramuscular 01/23/2021 Influenza, Trivalent, High D ose, Split, Preservative Free, Intramuscular 01/21/2023 Influenza, Unspecified 01/22/2020 Moderna SARS-CoV-2 Monovalen t Vaccination (12+ YRS) 07/29/2020,07/29/2020,06/29/2020,06/29 Pneumococcal Conjugate Pcv20 04/24/2023 RSV, Bivalent, Protein Subun it Rsvpref, Diluent (Abrysvo) 04/03/2023 Tdap 02/20/2019,05/16/2007 Surgical History Surgery Date Site/Laterality Comments OTHER SURGICAL HISTORY 04/22/1993 - 04/21/1994 Cataracts: Cataract extraction RHINOPLASTY 04/22/1976 - 04/21/1977 rhinoplasty OTHER SURGICAL HISTORY 04/22/1971 - 04/21/1972 D&C CHOLECYSTECTOMY 04/22/1999 - 04/21/2000 Cholecystectomy COLONOSCOPY 06/20/2013 - 07/20/[address] [facility] COLONOSCOPY 06/20/2018 - 07/20/2018 COLONOSCOPY 2024 Medical History Medical History Date Comments Hx Other Medical Mitral Regurgit ation Hx Other Medical Tricuspid Regur gitation Hx Other Medical Cataracts Hypertension Hypertension Hx Other Medical Skin basal cell cancer Asthma Breast cancer (HCC) Hyperlipidemia Family History Medical History Relation Name Comments Skin cancer Father Cancer, skin; Stroke Maternal Grandfather Stroke; Breast cancer Mother Cancer, breast ; Diabetes Mother Diabetes mellit us; Heart failure Mother Congestive hea rt failure; Hypertension Mother Hypertension; Diabetes Sister 2 Diabetes mellit us; Relation Name Status Comments Father Alive Maternal Grandfather Alive Mother Alive Sister 1 Alive Sister 2 Social History Tobacco Use Types Packs/Day Years Used Date Smoking Tobacco: Never Smokeless Tobacco: Never Tobacco Cessation:Counseling Given: Not Answered Alcohol Use Standard Drinks/Week Comments Yes 0 [...] on file Legal Sex Female 11:59 PM [employer] Gender Identity Not on file Sexual Orientation Not on file Obstetrics History Last Filed Vital Signs Vital Sign Reading Time Taken Comments Blood Pressure 152/75 09/08/2024 9:41 AM CDT Pulse 75 09/08/2024 9:41 AM CDT Temperature 37 C (98.6 F) 09/01/2024 2:41 PM CDT Respiratory Rate 16 09/01/2024 2:41 PM CDT Oxygen Saturation 97% 09/08/2024 9:41 AM CDT Inhaled Oxygen Concentration - - Weight 72 kg (158 lb 12.8 oz) 09/08/2024 9:41 AM CDT Height 154.9 cm (5' 1) 09/08/2024 9:41 AM CDT Body Mass Index 30 09/08/2024 9:41 AM CDT Plan of Treatment Health Maintenance Due Date Last Done Comments Depression Screening 1945 Hepatitis C Screening 1945 Osteoporosis Screening-Bone Density Scan 1945 Hepatitis B Screening 01/30/1964 Zoster Vaccine (1 of 2) 1965 Well Visit 65+ 2011 Covid-19 Vaccine (2023-2 5 season) 2023 02/27/2023, 03/19/2022, 02/23/2021, Additional history exists Influenza Vaccine (Season Ended) 2024 01/21/2023, 01/23/2021, 01/22/2020, Additional history exists Fall Risk Assessment 09/01/2025 09/01/2024 DTaP/Tdap/Td Vaccine (3 - Td or Tdap) 02/20/2029 02/20/2019, 05/16/2007 Pneumococcal vaccine 65+ Completed 04/24/2023 Colon Cancer Screening-CT Colonography Discontinued 2024, 06/24/2018, 11/02/2013 Colon Cancer Screening-Colonoscopy Discontinued 2024, 06/24/2018, 11/02/2013 Colon Cancer Screening-DNA Stool Discontinued 2024, 06/24/2018, 11/02/2013 Colon Cancer Screening-FIT Discontinued 01/28, 06/24/2018, 11/02/2013 Colon Cancer Screening-FOBT Discontinued 12/2023, 06/24/2018, 11/02/2013 Colon Cancer Screening-Sigmoidoscopy Discontinued 2024, 06/24/2018, 11/02/2013 Colorectal Cancer Screening Discontinued Procedures Procedure Name Priority Date/Time Associated Diagnosis Comments BOUGIE DILATION 09/01/2024 1:33 PM CDT Dyspepsia ESOPHAGOGASTRODUODENOSCOPY BIOPSY 09/01/2024 1:33 PM CDT Dyspepsia SURGICAL PATHOLOGY STAT 09/01/2024 1:20 PM CDT Dyspepsia EGD 09/01/2024 11:17 AM CDT COLONOSCOPY 2024 9:28 AM CDT from Last 3 Months or Most Recently Relevant to Health Maintenance Results * Surgical pathology (09/01/2024 1:20 PM CDT) Tissue (Gastric/Stomach biopsy) 09/01/2024 2:04 PM CDT Tissue specimen (specimen) (Duodenum, Biopsy) 09/01/2024 2:04 PM CDT Tissue specimen (specimen) (EG Junction, Biopsy) 09/01/2024 2:05 PM CDT Narrative PATHOLOGY [facility]) - 09/04/2024 10:58 AM CDT EPIC results best viewed via link to PDF [facility] Department of Pathology [address] [place] [address] Note to Patients: This report may contain a detailed description of human tissue sent by a health care provider to the laboratory for pathologic evaluation. The content of this report is essential for diagnosis and may provide important critical findings. This information may be unfamiliar to patients to review without a medical professional present. It is advised that the patient review this report in the presence of a health care provider who can answer questions and explain the details. Final Report Patient Name: DEDE JOHNSON Address: [address] [place] [address] Gender: F : 1945 (Age: 79) Service: Gastro [facility]: [facility] #: [id number] Patient Type: [facility] Taken: 09/01/2024 Received: 09/02/2024 Accessioned: 09/02/2024 Reported: 09/04/2024 Physician(s):Dr. Gregor Alanis M.D. Diagnosis: A. Stomach, gastric biopsy- Benign fundic type gastric mucosa demonstrating marked reactive gastropathy B. Duodenal polyp, endoscopic biopsy- Gastric metaplasia, consistent with C. GE junction, endoscopic biopsy- Benign squamous mucosa demonstrating erosive esophagitis Negative for intestinal metaplasia/Fam's mucosa Orquidea Loera M.D. Report Electronically Reviewed and Signed Out By Orquidea Loera M.D. 09/04/2024 10:58:10 Specimen(s) Received: A: Gastric biopsy B: Duodenum polyp biopsy C: GE Junction Biopsy Microscopic Description: Microscopic examination corroborates the diagnosis. Clinical History: Dyspepsia. EGD. Gross Description: The specimen is submitted in three formalin containers labeled DEDE JOHNSON. A. The first container is labeled gastric biopsy. It is 3 fragments of lloyd tissue between 1 and 2 mm. All in A. B. The second container is labeled duodenal polyp. It is 3 fragments lloyd tissue between 1 and 2 mm. All in B. C. The third container is labeled GE junction. It is 2 fragments of lloyd tissue measuring 2 mm. All in C. T.[facility] P.A[facility]Orquidea Loera M.D. REPORT IMAGES AND SCANNED DOCUMENTS, IF INCLUDED, ONLY VIEWABLE IN PDF VERSION OF REPORT The performance characteristics of some immunohistochemical stains, fluorescence in-situ hybridization tests and immunophenotyping by flow cytometry cited in this report (if any) were determined by the Surgical Pathology Department at [facility] as part of an ongoing senior quality control technician program and in compliance with federally mandated regulations drawn from the Clinical Laboratory Improvement Act of 1988 (CLIA '88). Some of these tests rely on the use of analyte specific reagents and are subject to specific labeling requirements by the US Food and Drug Administration. Such diagnostic tests may only be performed in a facility that is certified by the Department of Health and Human Services as a high complexity laboratory under CLIA '88. The FDA has determined that such clearance or approval is not necessary. This test is used for clinical purposes. It should not be regarded as investigational or for research. Nevertheless, federal rules concerning the medical use of analyte specific reagents require that the following disclaimer be attached to the report: This test was developed and its performance characteristics determined by the Surgical Pathology Department [facility]. It has not been cleared or approved by the U. S. Food and Drug Administration. Note for decalcified specimens: This assay has not been validated on decalcified tissues. Results should be interpreted with caution given the possibility of false negativity on decalcified specimens Gregor Alanis MD LAB PATHOLOGY ORDERABLES F inal Result PATHOLOGY [place] [id number] * EGD (09/01/2024 11:17 AM CDT) Anatomical Region Laterality Modality Other Narrative Procedure Note Gregor Alanis MD - 09/01/2024 11:17 AM CDT [facility] Patient Name: Dede Johnson Procedure Date: 09/01/2024 11:17 AM Date of : 1945 Admit Type: Outpatient Age: 79 Gender: Female Attending MD: Gregor Alanis M.D. Room: [facility] ENDOSCOPY ROOM 1 Note Status: Finalized Patient Profile: This is a 79 year old female. Patient complained dysphagia mainly in the chest area. Often withsolid food. EGD for evaluation Procedure: Upper GI endoscopy Indications: Dyspepsia, Dysphagia Referring MD: Baron Fleming M.D. Providers: Gregor Alanis M.D. Impression: - A single duodenal polyp benign appearance in the bulb of the duodenal. Biopsied. - Erythematous mucosa in the antrum. Biopsied. - Medium-sized hiatal hernia. - Benign-appearing esophageal stenosis suggestiveof Schatzki's ring at the GE junction. Biopsied.Dilated with 54 Ni[place] Hart dilator. Recommendation: - Continue present medications. - Use Pepcid (famotidine) 40 mg PO daily. - Maintain soft diet. Medicines: Monitored Anesthesia Care Complications: No immediate complications. Estimated Blood Loss: Estimated blood loss: none. Procedure: Pre-Anesthesia Assessment: - Prior to the procedure, a History and Physicalwas performed, and patient medications and allergieswere reviewed. The patient's tolerance of previous anesthesia was also reviewed. The risks andbenefits of the procedure and the sedation options and risks were discussed with the patient. All questions were answered, and informed consent was obtained. Prior Anticoagulants: The patient has taken noanticoagulant or antiplatelet agents. ASA Grade Assessment: Per anesthesia note and evaluation. After reviewing the risks and benefits, the patient was deemed in satisfactory condition to undergo the procedure. The benefits, risks, and alternatives to theprocedure and sedation were discussed and informed consentwas obtained. The scope was passed under direct vision. The Endoscope [id number]-H190 [id number] was introduced through the mouth, and advanced to the second partof duodenum. The upper GI endoscopy was accomplished without difficulty. The patient tolerated the procedure well. Findings: The second portion of the duodenum was normal. Mucosa appearednormal A single 16 mm sessile polyp was found in the duodenal bulb. Biopsies were taken with a cold forceps for histology. Striped moderately erythematous mucosa without bleeding was found inthe gastric antrum. Biopsies were taken with a cold forceps forhistology. Retroflexion stomach in the gastric fundus noted with a hiatal hernia but the gastric cardia was unremarkable otherwise. A 5 cm medium-sized hiatal hernia was present. One benign-appearing, intrinsic mild stenosis was found 35 cm fromthe incisors suggestive of Schatzki's ring. The stenosis was traversed. Biopsies were taken with a cold forceps for histology. The scope was withdrawn. Dilation was performed with a Hart dilator with no resistance at 54 Fr. The esophagus body was unremarkable. Electronically signed by Gregor Alanis M.D. Gregor Alanis M.D. 09/01/2024 2:19:03 PM Number of Addenda: 0 Note Initiated On: 09/01/2024 11:17 AM Procedure Code(s): --- Professional --- 66278, Esophagogastroduodenoscopy, flexible, transoral; with biopsy, single or multiple 66368, Dilation of esophagus, by unguided sound or bougie, single or multiple passes Diagnosis Code(s): --- Professional --- K31.7, Polyp of stomach and duodenum K31.89, Other diseases of stomach and duodenum K44.9, Diaphragmatic hernia without obstruction or gangrene K22.2, Esophageal obstruction R10.13, Epigastric pain R13.10, Dysphagia, unspecified CPT copyright 2020 [employer]. All rights reserved. The codes documented in this report are preliminary and upon health information coder reviewmay be revised to meet current compliance requirements. Recognized by the [employer] for promoting quality in endoscopy Gregor Alanis MD ENDOSCOPY PROCEDURES Final Result * Colonoscopy (2024 9:28 AM CDT) Anatomical Region Laterality Modality Other Narrative Procedure Note Gregor Alanis MD - 2024 9:28 AM CDT [facility] Patient Name: Dede Johnson Procedure Date: 2024 9:28 AM Date of : 1945 Admit Type: Outpatient Age: 78 Gender: Female Attending MD: Gregor Alanis M.D. Room: [facility] ENDOSCOPY ROOM 1 Note Status: Finalized Patient Profile: Last Colonoscopy: June 2018. This is a 78 year old female. History of polyps adenoma type. No family history of colon cancer. Patient has issues withthe irregular bowel movements and incompleteevacuation Procedure: Colonoscopy Indications: High risk colon cancer surveillance: Personalhistory of colonic polyps Referring MD: Baron Fleming M.D. Providers: Gregor Alanis M.D. Impression: - One 3 mm polyp in the proximal ascending colon, removed with a jumbo cold forceps. Resected and retrieved. - One 10 mm polyp in the mid ascending colon,removed with a cold snare. Resected and retrieved. - Diverticulosis in the sigmoid colon. - Internal hemorrhoids. Recommendation: - Await pathology results. - Repeat colonoscopy in 5 years for surveillance. - Continue present medications. Medicines: Monitored Anesthesia Care Complications: No immediate complications. Estimated Blood Loss: Estimated blood loss: none. Procedure: Pre-Anesthesia Assessment: - Prior to the procedure, a History and Physicalwas performed, and patient medications and allergieswere reviewed. The patient's tolerance of previous anesthesia was also reviewed. The risks andbenefits of the procedure and the sedation options and risks were discussed with the patient. All questions were answered, and informed consent was obtained. Prior Anticoagulants: The patient has taken noanticoagulant or antiplatelet agents. ASA Grade Assessment: Per anesthesia note and evaluation. After reviewing the risks and benefits, the patient was deemed in satisfactory condition to undergo the procedure. The benefits, risks and alternatives of theprocedure and sedation were discussed and informed consentwas obtained. All questions were answered. Please referto the signed informed consent document in the medical record. The bowel preparation used was Miralax and bisacodyl tablets via split dose instruction. The scope was passed under direct vision. The Pediatric Colonoscope [id number]-H190L [id number] was introducedthrough the anus and advanced to the the cecum, identifiedby appendiceal orifice and ileocecal valve. Thequality of the bowel preparation was good. Bowel prep was administered using a split dose. Findings: The perianal and digital rectal examinations were normal. The cecum appeared normal. A 3 mm polyp was found in the proximal ascending colon. The polyp was flat. The polyp was removed with a jumbo cold forceps. Resection and retrieval were complete. A 10 mm polyp was found in the mid ascending colon. The polyp was semi-sessile. The polyp was removed with a cold snare. Resection and retrieval were complete. The descending colon and transverse colon appeared normal. Randomcolon biopsy performed. Many medium-mouthed diverticula were found in the sigmoid colon. Internal hemorrhoids were found during retroflexion. The hemorrhoids were small. Electronically signed by Gregor Alanis M.D. Gregor Alanis M.D. 2024 1:00:48 PM Number of Addenda: 0 Note Initiated On: 2024 9:28 AM Procedure Code(s): --- Professional --- 41365, Colonoscopy, flexible; with removal of tumor(s), polyp(s), or other lesion(s) by snare technique 63216, 59, Colonoscopy, flexible; with biopsy, single or multiple Diagnosis Code(s): --- Professional --- Z86.010, Personal history of colonic polyps K64.8, Other hemorrhoids D12.2, Benign neoplasm of ascending colon K57.30, Diverticulosis of large intestine without perforation orabscess without bleeding CPT copyright 2020 [employer]. All rights reserved. The codes documented in this report are preliminary and upon health information coder reviewmay be revised to meet current compliance requirements. Recognized by the [employer] for promoting quality in endoscopy Gregor Alanis MD ENDOSCOPY PROCEDURES Final Result from Last 3 Months or Most Recently Relevant to Health Maintenance Insurance MEDICARE COMMERCIAL GENERIC [facility] MEDICARE COMMERCIAL GENERIC MEDICARE [facility] Advance Directives For more information, please contact: [phone] * Full Code (Latest Code Status on File) Date Activated Date Inactivated Comments 09/01/2024 11:24 AM 09/01/2024 7:08 PM * Full Code Date Activated Date Inactivated Comments 09/01/2024 11:24 AM 09/01/2024 11:24 AM * Full Code Date Activated Date Inactivated Comments 2024 9:49 AM 2024 5:59 PM * Full Code Date Activated Date Inactivated Comments 2024 9:48 AM 2024 9:49 AM * Full Code Date Activated Date Inactivated Comments 06/24/2018 8:03 AM 06/24/2018 3:35 PM Care Teams Visual Communications Instructor Relationship Specialty Start Date End Date Baron Fleming MD PCP - General 08/10/08 Anoop Taylor MD PhD [address] [place] [id number] Radiation Oncologist Radiation Oncology 01/28/20 Kevyn Lemus MD [address] [place] [id number] Medical Oncologist/Programmer Hematology and Oncology 09/25/22
--- OUTSIDE RECORDS SUMMARY | 2024-10-05 10:09 | XMS_ITS | Encounter Summary ---
Author Organization [facility] Address [address] [place] [address] Phone Care Team Providers Care Central Office Installer Name Role Phone Baron Fleming MD Primary Care Provider [phone] Anoop Taylor MD PhD Unavailable [phone] Cullen Torres MD Unavailable [phone] Mauricio Ayala DO Unavailable [phone] Kevyn Lemus MD Unavailable [phone] Encounter Details Date Type Department Care Team (Late st Contact Info) Description 01/22/2020 Telephone [facility] Oncology [address] [place] [address] Medical Office 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 Gender Identity Not on file Sexual Orientation Not on file documented as of this encounter Plan of Treatment Not on file documented as of this encounter Visit Diagnoses Not on filedocumented in this encounter Care Teams Central Office Installer Relationship Specialty Start Date End Date Baron Fleming MD PCP - General 08/10/08 Anoop Taylor MD PhD [address] [place] [address] Radiation Oncologist Radiation Oncology 01/28/20 Cullen Torres MD [address] [place] [address] Consulting Physician Medical Oncology 01/28/20 09/23/22 Mauricio Ayala DO [address] [place] [address] Referring Physician Surgery 01/28/20 10/06/23 Kevyn Lemus MD [address] [place], [place] [id number] Medical Oncologist/Outside Salesperson Hematology and Oncology 09/25/22 documented as of this encounter
--- OUTSIDE RECORDS SUMMARY | 2024-10-05 10:09 | XMS_ITS | Referral Summary ---
Author Organization [facility] Building [facility] Address [address] [place] [address] Care Team Providers Care Billing Checker Name Role Phone Baron Fleming MD Primary Care Provider Anoop Taylor MD PhD Unavailable [phone] Kevyn Lemus MD Unavailable [phone] Encounters Date Type Department Care Team Description 09/17/19 Telephone [facility] Oncology [address] [place] [address] [address] [place] [phone] Alesha An NP 09/10/19 Results Follow-Up [facility] Gastroenterology at [address] [place] [address] Gregor Alanis MD Surgical pathology 09/09/19 10:00 AM CDT Office Visit [facility] Gastroenterology at [address] [place] [phone] Jame Bhakta NP Schatzki's ring of distal esophagus (Primary Dx); Food sticks on swallowing; Erosive esophagitis; Hiatal hernia; Gastric intestinal metaplasia; Sessile serrated polyp of colon; Irritable bowel syndrome with both constipation and diarrhea 09/02/19 1:38 PM CDT Anesthesia Event [facility] [address] [place] [address] Jered Bashir MD 09/02/19 12:30 PM CDT - 09/02/19 1:00 PM CDT Surgery [facility] [address] [place] [address] Gregor Alanis MD ESOPHAGOGASTRODUODENOSCOPY BIOPSY 09/02/19 10:54 AM CDT - 09/02/19 3:08 PM CDT Hospital Encounter [facility] [address] [place] [address] Gregor Alanis MD Dyspepsia Discharge Disposition: Discharge to home or self care 07/25/[address] [facility] Gastroenterology at [address] [place] [address] Roshni Saab from Last 3 Months Allergies Active Allergy Reactions Criticality Noted Date [...] 5,000 mcg under the tongue daily Active fmmlevsz-mbp-DP-l ycopen-lutein 0.4-300-250 mg-mcg-mcg tabletIndications :Vitamin Deficiency Prevention [...] mg total) by mouth daily 30 tablet 11 02/27/20 24 Active fexofenadine (AGNIESZKA) 180 mg tablet Take 1 tablet (180 mg total) by mouth daily Active famotidine (PEPCID) 40 mg tablet Take 1 tablet (40 mg total) by mouth daily 30 tablet 09/02/19 026 Active Active Problems Problem Noted Date [...] from 12/18/2019:Stage IA(pT1c, pN1a(sn), cM0, G1, ER+, NM+, HER2-, Oncotype DX score: 15) - Signed by Anoop Taylor MD PhD on 01/28/2020 History of colon polyps 05/16/2018 Overview (05/16/2018): Added automatically from request for surgery [id number] Assessment & Plan (07/10/2018 10:05 AM CDT): [...] patient. Assessment & Plan (05/08/2018 11:43 AM WOMEN'S APPAREL SALESPERSON): Will schedule colonoscopy for full evaluation since last colonoscopy was 5 years ago. Gastroesophageal reflux disease without esophagi tis 05/08/2018 Assessment & Plan (07/10/2018 10:04 AM CDT): Continue Pepcid 40 mg daily. Otherwise no worrisome signs. Assessment & Plan (05/08/2018 11:42 AM WOMEN'S APPAREL SALESPERSON): Will start pepcid daily. Dyspepsia 05/08/2018 Assessment & Plan (07/10/2018 10:04 AM CDT): Continue has active 3 times daily with meal. I also discussed with the patient to try peppermint oil once daily as it may help with her dyspepsia and gas symptoms. Assessment & Plan (05/08/2018 11:42 AM WOMEN'S APPAREL SALESPERSON): Chronic symptoms likely functional, possible bacterial over growth plus the IBS, will try Flagyl to see if it helps. Will stop the probiotics. Immunizations Immunization Administration Dates Next Due Influenza, Quadrivalent, Spl it, Intramuscular 01/21/2020 Influenza, Quadrivalent, Spl it, Preservative Free, Intramuscular 01/23/2021 Influenza, Trivalent, High D ose, Split, Preservative Free, Intramuscular 01/21/2023 Influenza, Unspecified 01/22/2020 Moderna SARS-CoV-2 Monovalen t Vaccination (12+ YRS) 07/29/2020,07/29/2020,06/29/2020,06/29 Pneumococcal Conjugate Pcv20 04/24/2023 RSV, Bivalent, Protein Subun it Rsvpref, Diluent (Abrysvo) 04/03/2023 Tdap 02/20/2019,05/16/2007 Social History Tobacco Use Types Packs/Day Years [...] on file 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 Gender Identity Not on file Sexual Orientation Not on file Last Filed Vital Signs Vital Sign Reading [...] 09/08/2024 9:41 AM CDT Plan of Treatment Not on file Procedures Procedure Name Priority Date/Time Associated Diagnosis [...] Biopsy) 09/01/2024 2:05 PM CDT Narrative PATHOLOGY [facility] - 09/04/2024 10:58 AM CDT EPIC results best viewed via link to PDF [facility] Department of Pathology [address] [place] [address] Note to Patients: This report may contain [...] Final Report Patient Name: DEDE JOHNSON Address: [address] [place] [address] Gender: F : 1945 (Age: 79) Service: Gastro Location: [facility] Hospital #: [id number] Patient Type: [facility] Taken: 09/01/2024 Received: 09/02/2024 Accessioned: [...] measuring 2 mm. All in C. T.A. Cris Ospina, P.A./Orquidea Loera M.D. REPORT IMAGES AND SCANNED DOCUMENTS, IF INCLUDED, ONLY VIEWABLE IN PDF VERSION OF REPORT The performance characteristics of some immunohistochemical stains, fluorescence in-situ hybridization tests and immunophenotyping by flow cytometry cited in this report (if any) were determined by the Surgical Pathology Department at [facility] as part of an ongoing vice president quality assurance program and in compliance with federally mandated [...] characteristics determined by the Surgical Pathology Department [facility]. It has not been cleared or approved by the U. S. Food and Drug Administration. Note for decalcified specimens: This assay has not been validated on decalcified tissues. Results should be interpreted with caution given the possibility of false negativity on decalcified specimens Gregor Alanis MD LAB PATHOLOGY ORDERABLES F inal Result PATHOLOGY [facility] [address] [place] [address] [id number] * EGD (09/01/2024 11:17 AM CDT) Anatomical Region Laterality Modality Other Narrative Procedure Note Gregor Alanis MD - 09/01/2024 11:[address] [facility] Patient Name: Dede Johnson Procedure Date: 09/01/2024 11:17 AM Date of : 1945 Admit Type: Outpatient Age: 79 Gender: Female Attending MD: Gregor Alanis M.D. Room: [facility] ENDOSCOPY ROOM 1 Note Status: Finalized [...] at the GE junction. Biopsied.Dilated with 54 Malay Hart dilator. Recommendation: - Continue present medications. [...] passed under direct vision. The Endoscope GIF-[id number] was introduced through the mouth, and advanced [...] 11:17 AM Procedure Code(s): --- Professional --- 68067, Esophagogastroduodenoscopy, flexible, transoral; with biopsy, single or multiple 35076, Dilation of esophagus, by unguided sound or bougie, single or multiple passes Diagnosis Code(s): --- Professional --- K31.7, Polyp of stomach and duodenum K31.89, Other diseases of stomach and duodenum K44.9, Diaphragmatic hernia without obstruction or gangrene K22.2, Esophageal obstruction R10.13, Epigastric pain R13.10, Dysphagia, unspecified CPT copyright 2020 [employer]. All rights reserved. The codes documented in this report are preliminary and upon particle board supervisor reviewmay be revised to meet current compliance requirements. Recognized by the [place] [employer] for promoting quality in endoscopy Gregor Alanis MD ENDOSCOPY PROCEDURES Final Result * Colonoscopy (2024 9:28 AM CDT) Anatomical Region Laterality Modality Other Narrative Procedure Note Gregor Alanis MD - 2024 9:28 AM CDT [facility] Patient Name: Dede Johnson Procedure Date: 2024 9:28 AM Date of : 1945 Admit Type: Outpatient Age: 78 Gender: Female Attending MD: Gregor Alanis M.D. Room: [facility] ENDOSCOPY ROOM 1 Note Status: Finalized [...] under direct vision. The Pediatric Colonoscope [id number]-H190L [id number] was introducedthrough the anus and advanced to [...] 9:28 AM Procedure Code(s): --- Professional --- 92449, Colonoscopy, flexible; with removal of tumor(s), polyp(s), or other lesion(s) by snare technique 69374, 59, Colonoscopy, flexible; with biopsy, single or multiple Diagnosis Code(s): --- Professional --- Z86.010, Personal history of colonic polyps K64.8, Other hemorrhoids D12.2, Benign neoplasm of ascending colon K57.30, Diverticulosis of large intestine without perforation orabscess without bleeding CPT copyright 2020 [employer]. All rights reserved. The codes documented in this report are preliminary and upon particle board supervisor reviewmay be revised to meet current compliance requirements. Recognized by the [employer] for promoting quality in endoscopy Gregor Alanis MD ENDOSCOPY PROCEDURES Final Result from Last 3 Months or Most Recently Relevant to Health Maintenance Insurance MEDICARE [facility] MEDICARE COMMERCIAL GENERIC MEDICARE [employer] Advance Directives For more information, please contact: [phone] * Full Code (Latest Code Status on [...] 8:03 AM 06/24/2018 3:35 PM Care Teams Billing Checker Relationship Specialty Start Date End Date Baron Fleming MD PCP - General 08/10/08 Anoop Taylor MD PhD [address] [place] [address] Radiation Oncologist Radiation Oncology 01/28/20 Kevyn Lemus MD [address] [place] [address] Medical Oncologist/Tracer Clerk Hematology and Oncology 09/25/22
--- OUTSIDE RECORDS SUMMARY | 2024-10-05 10:09 | XMS_ITS ---
Author Organization [facility] Medical Office Building B Address [address] [place] [address] Care Team Providers Care Gate Watchman Name Role Phone Baron Fleming MD Primary Care Provider [phone] Anoop Taylor MD PhD Unavailable [phone] Kevyn Lemus MD Unavailable [phone] Active Problems Problem Noted Date Diagnosed Date [...] from 12/18/2019:Stage IA(pT1c, pN1a(sn), cM0, G1, ER+, AK+, HER2-, Oncotype DX score: 15) - Signed by Anoop Taylor MD PhD on 01/28/2020 History of colon polyps 05/16/2018 Overview (05/16/2018): Added automatically from request for surgery [id number] Assessment & Plan (07/10/2018 10:05 AM CDT): [...] patient. Assessment & Plan (05/08/2018 11:43 AM LEAD CLINICAL RESEARCH COORDINATOR): Will schedule colonoscopy for full evaluation since last colonoscopy was 5 years ago. Gastroesophageal reflux disease without esophagi tis 05/08/2018 Assessment & Plan (07/10/2018 10:04 AM CDT): Continue Pepcid 40 mg daily. Otherwise no worrisome signs. Assessment & Plan (05/08/2018 11:42 AM LEAD CLINICAL RESEARCH COORDINATOR): Will start pepcid daily. Dyspepsia 05/08/2018 Assessment & Plan (07/10/2018 10:04 AM CDT): Continue has active 3 times daily with meal. I also discussed with the patient to try peppermint oil once daily as it may help with her dyspepsia and gas symptoms. Assessment & Plan (05/08/2018 11:42 AM LEAD CLINICAL RESEARCH COORDINATOR): Chronic symptoms likely functional, possible bacterial over growth plus the IBS, will try Flagyl to see if it helps. Will stop the probiotics. Current Treatment and Therapy Plans No current plan information found. Past Treatment and Therapy Plans No past plan information found. Radiation Treatments * Course [id number] 02/08/2020 - 02/29/2020 Treatment Period Energy Fraction Dose Fractions Total Dose Plans Planned LT CW_LNs 02/08/2020 - 02/29/2020 266 16 / 4,256 Reference Points Delivered LT CW_LNs 02/08/2020 - 02/29/2020 4,256
--- OUTSIDE RECORDS SUMMARY | 2024-10-05 10:09 | XMS_ITS | Clinical Summary ---
Author Organization [facility] Care Team Providers Care Form Block Maker Name Role Phone Unavailable Primary Care Provider Unavailabl e Social History Tobacco Use Types Packs/Day Years Used Date Smoking Tobacco: Never Assessed Comments Unknown Sex and Gender Information Value Date Recorded Sex Assigned at Not on file Legal Sex Female 7:47 PM CDT Gender Identity Not on file Sexual Orientation Not on file Plan of Treatment Health Maintenance Due Date Last Done Comments DEXA Bone Density 1945 Hepatitis C Virus (HCV) Screening 1945 TdaP Immunization 1945 Pneumococcal Immunization (5 0+ years) (1 of 1 - PCV) 01/30/1996 Zoster Immunization (1 of 2) 01/30/1996 Respiratory Syncytial Virus (RSV) Immunization (Adult) (1 - 1-dose 75+ series) 2021 Influenza Immunization (#1) 2023 SARS-COV-2 Immunization ( - season) 2023 Hepatitis B Immunization Aged Out No longer eligible based on patient's age to complete this topic Meningococcal Immunization (ACWY) Aged Out No longer eligible based on patient's age to complete this topic Rotavirus Immunization Aged Out No lo nger eligible based on patient's age to complete this topic
[2024-10-05 10:44] LABS: Alanine Aminotransferase 17 U/L (6-35); Albumin Level 4.1 g/dL (3.5-5.1); Alkaline Phosphatase 70 U/L (38-126); Anion Gap 4 mmol/L (4-12); Aspartate Amino Transferase 24 U/L (14-36); Bilirubin,Total 1.1 mg/dL (0.2-1.3); Blood Urea Nitrogen 26 mg/dL (7-17); Carbon Dioxide 30 mmol/L (22-30); Chloride 106 mmol/L (98-107); Cholesterol 156 mg/dL (0-200); Estimated Glomerular Filt Rate > 60; Glucose 120 mg/dL (65-110); HDL Direct 48 mg/dL; LDL Cholesterol Calculated 81 mg/dL (<130); Osmolality Calculated 295 mOsm/kg (285-295); Potassium 4.7 mmol/L (3.4-5.0); Sodium 140 mmol/L (137-145); Total Protein 6.9 g/dL (6.3-8.2); Triglycerides 135 mg/dL (<150)
[2024-10-05 20:19] LABS: Hemoglobin A1C 6.7 % (<5.7)
== END 2024-10-05 09:31 | disposition home or self-care (01) ==
LOC: CHSLAB 09:33
PROVIDERS: PCP Internal Medicine; Visit Provider Internal Medicine
DX: E78.5 Hyperlipidemia, unspecified (principal); E11.9 Type 2 diabetes mellitus without complications
CPT/HCPCS: 36415; 80053; 80061; 83036

== ENCOUNTER 2024-11-04 09:47 | Outpatient (CLI) | payer MEDICARE, SELFPAY ==
--- NOTE | ~2024-11-04 | MM_ITS ---
CORRECTED REPORT corrected examination description to MM Screening alisa RT w Zain JMG 11/04/24 This report was recreated on 11/04/2024. Original report was EXAMINATION: MM screening alisa RT w zain HISTORY: Screening TECHNIQUE: Craniocaudal and mediolateral oblique 3-D tomosynthesis images were obtained and synthetic 2-D images were generated. CAD analysis was submitted and interpreted. COMPARISON: Comparison to multiple prior studies sequentially, with oldest reviewed study dated 10/27/2020. BREAST PARENCHYMAL COMPOSITION: Not dense: There are scattered areas of fibroglandular density. FINDINGS: There is no evidence of suspicious mass, calcification, or architectural distortion to suggest malignancy in the right breast. There has been no suspicious interval change. IMPRESSION: 1. No mammographic evidence of malignancy. 2. Recommend routine screening mammography in one year. BI-RADS Category 1: Negative Reviewed, dictated and finalized at location B.
--- OUTSIDE RECORDS SUMMARY | 2024-11-04 09:56 | XMS_ITS | Clinical Summary ---
Author Organization [facility] Care Team Providers Care Dependency Counselor Name Role Phone Unavailable Primary Care Provider [...]
--- OUTSIDE RECORDS SUMMARY | 2024-11-04 09:56 | XMS_ITS | Encounter Summary ---
Author Organization [facility] Address [address] [place] [address] Care Team Providers Care Trade Show Specialist Name Role Phone Baron Fleming MD Primary Care Provider [phone] Brock Araiza MD Unavailable Encounter Details Date Type Department Care Team (Late st Contact Info) Description 04/19/2016 Abstract [facility] [address] [place] [address] Brock Araiza MD [address] [facility], [facility] [address] [place] [address] Social History Tobacco Use Types Packs/Day Years Used Date Smoking Tobacco: Never Smokeless Tobacco: Never Alcohol Use Standard Drinks/Week Comments No 0 (1 standard drink = 0.6 oz pur e alcohol) Comments Unknown Sex and Gender Information Value Date Recorded Sex Assigned at Not on file Legal Sex Female 5:20 PM CDT Gender Identity Not on file Sexual Orientation Not on file Occupation Industry Job Start Date Job End Date [employer] Not on file Not on file Not on file documented as of this encounter Plan of Treatment Not on file documented as of this encounter Visit Diagnoses Not on filedocumented in this encounter Care Teams Trade Show Specialist Relationship Specialty Start Date End Date Baron Fleming MD [address] [place] [address] PCP - General INTERNAL MEDICINE 09/23/15 Brock Araiza MD [address] [place] [phone] CARDIOVASCULAR DISEASE 10/11/15 documented as of this encounter
--- OUTSIDE RECORDS SUMMARY | 2024-11-04 09:56 | XMS_ITS | Encounter Summary ---
Author Organization [facility] Healthcare Address [address] [place] [address] Care Team Providers Care Waiter/Waitress Tourist Class Name Role Phone aBron Fleming MD Primary Care Provider [phone] Anoop Taylor MD PhD Unavailable [phone] Kevyn Lemus MD Unavailable [phone] Encounter Details Date Type Department Care Team (Latest Contact Info) Description 09/09/2024 Results Follow-Up [facility] Group Gastroenterology at [address] [place] [address] Gregor Alanis MD [address] [place] [address] [address] [place] [address] Surgical pathology Social History Tobacco Use Types [...] on file 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
--- OUTSIDE RECORDS SUMMARY | 2024-11-04 09:56 | XMS_ITS | Referral Summary ---
Author Organization [facility] Address [address] [place] [address] Care Team Providers Care Director Of Content And Programming Name Role Phone Baron Fleming MD Primary Care Provider [phone] Anoop Taylor MD PhD Unavailable [phone] Kevyn Lemus MD Unavailable [phone] Encounters Date Type Department Care Team Description 09/17/19 Telephone [facility] Oncology [address] [place] [address] [address] [place] [phone] Alesha An NP 09/10/19 Results Follow-Up [facility] Gastroenterology at [address] [place] [address] Gregor Alanis MD Surgical pathology 09/09/19 10:00 AM CDT Office Visit [facility] Gastroenterology at [address] [place] [address] Jame Bhakta NP Schatzki's ring of distal esophagus (Primary Dx); Food sticks on swallowing; Erosive esophagitis; Hiatal hernia; Gastric intestinal metaplasia; Sessile serrated polyp of colon; Irritable bowel syndrome with both constipation and diarrhea 09/02/19 1:38 PM CDT Anesthesia Event [facility] [address] [place] [address] Jered Bashir MD 09/02/19 12:30 PM CDT - 09/02/19 1:00 PM CDT Surgery [facility] [address] [address] Gregor Alanis MD ESOPHAGOGASTRODUODENOSCOPY BIOPSY 09/02/19 10:54 AM CDT - 09/02/19 3:08 PM CDT Hospital Encounter [address] [address] Gregor Alanis MD Dyspepsia Discharge Disposition: Discharge to home or self care from Last 3 Months Allergies Active Allergy [...] 5,000 mcg under the tongue daily Active etlmmtnp-cwv-SO-l ycopen-lutein 0.4-300-250 mg-mcg-mcg tabletIndications :Vitamin Deficiency Prevention [...] from 12/18/2019:Stage IA(pT1c, pN1a(sn), cM0, G1, ER+, NE+, HER2-, Oncotype DX score: 15) - Signed by Vlacich, Anoop Puneet, MD PhD on 01/28/2020 History of colon polyps 05/16/2018 Overview (05/16/2018): Added automatically from request for surgery [id number] Assessment & Plan (07/10/2018 10:05 AM CDT): [...] patient. Assessment & Plan (05/08/2018 11:43 AM CORPORATE AUDITOR): Will schedule colonoscopy for full evaluation since last colonoscopy was 5 years ago. Gastroesophageal reflux disease without esophagi tis 05/08/2018 Assessment & Plan (07/10/2018 10:04 AM CDT): Continue Pepcid 40 mg daily. Otherwise no worrisome signs. Assessment & Plan (05/08/2018 11:42 AM CORPORATE AUDITOR): Will start pepcid daily. Dyspepsia 05/08/2018 Assessment & Plan (07/10/2018 10:04 AM CDT): Continue has active 3 times daily with meal. I also discussed with the patient to try peppermint oil once daily as it may help with her dyspepsia and gas symptoms. Assessment & Plan (05/08/2018 11:42 AM CORPORATE AUDITOR): Chronic symptoms likely functional, possible bacterial over [...] on file Legal Sex Female 11:59 PM CORPORATE AUDITOR Gender Identity Not on file Sexual Orientation [...] Biopsy) 09/01/2024 2:05 PM CDT Narrative [facility] - 09/04/2024 10:58 AM CDT EPIC results best viewed via link to PDF [facility] Department of Pathology [address] [place] [address] Note to Patients: This report may contain [...] Final Report Patient Name: DEDE JOHNSON Address: [address] [place] [address] Gender: F : 1945 (Age: 79) Service: Gastro Location: [facility] #: [id number] Patient Type: [facility] Taken: 09/01/2024 Received: 09/02/2024 Accessioned: 09/02/2024 Reported: [...] determined by the Surgical Pathology Department at [facility] as part of an ongoing production quality manager program and in compliance with federally mandated [...] characteristics determined by the Surgical Pathology Department [facility]. It has not been cleared or approved by the U. S. Food and Drug Administration. Note for decalcified specimens: This assay has not been validated on decalcified tissues. Results should be interpreted with caution given the possibility of false negativity on decalcified specimens us Gregor Alanis MD LAB PATHOLOGY ORDERABLES F inal Result [facility] [address] [place] [address] * EGD (09/01/2024 11:17 AM CDT) Anatomical Region Laterality Modality Other Narrative Procedure Note Gregor Alanis MD - 09/01/2024 11:[address] [facility] Patient Name: Dede Johnson Procedure Date: 09/01/2024 11:17 AM Date of : 1945 Admit Type: Outpatient Age: 79 Gender: Female Attending MD: Gregor Alanis M.D. Room: [facility] END[facility] 1 Note Status: Finalized [...] at the GE junction. Biopsied.Dilated with 54 Portuguese Hart dilator. Recommendation: - Continue present medications. [...] passed under direct vision. The Endoscope GIF-H190 [id number] was introduced through the mouth, and advanced [...] 11:17 AM Procedure Code(s): --- Professional --- 68810, Esophagogastroduodenoscopy, flexible, transoral; with biopsy, single or multiple 93001, Dilation of esophagus, by unguided sound or bougie, single or multiple passes Diagnosis Code(s): --- Professional --- K31.7, Polyp of stomach and duodenum K31.89, Other diseases of stomach and duodenum K44.9, Diaphragmatic hernia without obstruction or gangrene K22.2, Esophageal obstruction R10.13, Epigastric pain R13.10, Dysphagia, unspecified CPT copyright 2020 [employer]. All rights reserved. The codes documented in this report are preliminary and upon heel nail rasper reviewmay be revised to meet current compliance requirements. Recognized by the [employer] for promoting quality in endoscopy Gregor Alanis MD ENDOSCOPY PROCEDURES Final Result * Colonoscopy (2024 9:28 AM CDT) Anatomical Region Laterality Modality Other Narrative Procedure Note Gregor Alanis MD - 2024 9:28 AM CDT [facility] Patient Name: Dede Johnson Procedure Date: 2024 9:28 AM Date of : 1945 Admit Type: Outpatient Age: 78 Gender: Female Attending MD: Gregor Alanis M.D. Room: [facility] 1 Note Status: Finalized [...] under direct vision. The Pediatric Colonoscope PCF-H190L [id number] was introducedthrough the anus and advanced to [...] 9:28 AM Procedure Code(s): --- Professional --- 79256, Colonoscopy, flexible; with removal of tumor(s), polyp(s), or other lesion(s) by snare technique 13793, 59, Colonoscopy, flexible; with biopsy, single or multiple Diagnosis Code(s): --- Professional --- Z86.010, Personal history of colonic polyps K64.8, Other hemorrhoids D12.2, Benign neoplasm of ascending colon K57.30, Diverticulosis of large intestine without perforation orabscess without bleeding CPT copyright 2020 [employer]. All rights reserved. The codes documented in this report are preliminary and upon heel nail rasper reviewmay be revised to meet current compliance requirements. Recognized by the [employer] for promoting quality in endoscopy Gregor Alanis MD ENDOSCOPY PROCEDURES Final Result from Last 3 Months or Most Recently Relevant to Health Maintenance Insurance MEDICARE COMMERCIAL GENERIC [facility] MEDICARE COMMERCIAL GENERIC MEDICARE [facility] [place] [address] Advance Directives For more information, please contact: [phone] * Full Code (Latest Code Status on [...] 8:03 AM 06/24/2018 3:35 PM Care Teams Director Of Content And Programming Relationship Specialty Start Date End Date Baron Fleming MD PCP - General 08/10/08 Anoop Taylor MD PhD [address] [place] [address] Radiation Oncologist Radiation Oncology 01/28/20 Kevyn Lemus MD [address] [place] [address] Medical Oncologist/Meter Shop Superintendent Hematology and Oncology 09/25/22
--- OUTSIDE RECORDS SUMMARY | 2024-11-04 09:56 | XMS_ITS ---
Author Organization [facility] Address [address] [place] [phone] Care Team Providers Care Chute Man Name Role Phone Baron Fleming MD Primary Care Provider [phone] Anoop Taylor MD PhD Unavailable [phone] Kevyn Lemus MD Unavailable [phone] Active Problems Problem Noted Date Diagnosed Date [...] from 12/18/2019:Stage IA(pT1c, pN1a(sn), cM0, G1, ER+, [place]+, HER2-, Oncotype DX score: 15) - Signed by Anoop Taylor MD PhD on 01/28/2020 History of colon polyps 05/16/2018 Overview (05/16/2018): Added automatically from request for surgery [id number] Assessment & Plan (07/10/2018 10:05 AM CDT): [...] patient. 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 Gastroesophageal reflux disease without esophagi tis 05/08/2018 Assessment & Plan (07/10/2018 10:04 AM CDT): Continue Pepcid 40 mg daily. Otherwise no worrisome signs. Assessment & Plan (05/08/2018 11:42 AM SELLING UNDERWRITER): Will start pepcid daily. Dyspepsia 05/08/2018 Assessment & Plan (07/10/2018 10:04 AM CDT): Continue has active 3 times daily with meal. I also discussed with the patient to try peppermint oil once daily as it may help with her dyspepsia and gas symptoms. Assessment & Plan (05/08/2018 11:42 AM SELLING UNDERWRITER): Chronic symptoms likely functional, possible bacterial over [...]
--- OUTSIDE RECORDS SUMMARY | 2024-11-04 09:56 | XMS_ITS | Clinical Summary ---
Author Organization [facility] Address [address] [place] [address] Care Team Providers Care Sports Activities Foul Judge Name Role Phone Baron Fleming MD Primary Care Provider [phone] Brock Araiza MD Unavailable Allergies Active Allergy Reactions Criticality Noted Date Comments Gemifloxacin Itching 10/11/2015 burning Seasonal Cough 10/11/2015 Runny nose Medications atenolol 25 MG tablet Take 25 mg by mouth daily. 08/14/2015 Active LUMIGAN 0.01 % Solution Place 1 drop into both eyes nightly at bedtime. 07/28/2015 Active gabapentin 100 MG capsule Take 200 mg by mouth nightly at bedtime. 09/09/2015 Active nortriptyline 25 MG capsule Take 25 mg by mouth daily. 09/09/2015 Active FIBER COMPLETE OR Take 2 tablets by mouth 2 (two) times daily. Active Homeopathic Products (SIMILASAN DRY EYE RELIEF OP) Apply 2 drops to eye daily as needed. Active Multiple Vitamins-Minera ls (CENTRUM SILVER ADULT 50+ OR) Take 1 tablet by mouth daily. Active Flaxseed, Linseed, (FLAX SEED OIL OR) Take 1 capsule by mouth daily. Active vitamin C 500 MG tablet Take 1,000 mg by mouth daily. Active Cyanocobalamin (VITAMIN B 12 OR) Take 1 tablet by mouth daily. Active atorvastatin 10 MG tablet Take 10 mg by mouth nightly at bedtime. Active letrozole 2.5 MG tablet Take 2.5 mg by mouth daily. Active Active Problems Problem Noted Date Diagnosed Date Essential hypertension 11/13/2016 Spider veins 04/24/2016 COPD (chronic obstructive pu lmonary disease) with emphysema ([facility]) 10/12/2015 GERD (gastroesophageal reflux disease) 6 Leg pain, bilateral 10/11/2015 PAD (peripheral artery disease) Leg pain Family History Medical History Relation Comments Lung Disease Father Breast Cancer Mother Diabetes Mother Hypertension Mother Diabetes Sister 1 Hypertension Sister 1 eye issues Sister 1 Diabetes Sister 2 Relation Status Comments Father Mother Sister 1 Alive Sister 2 Alive Social History Tobacco Use Types Packs/Day Years Used Date Smoking Tobacco: Never Smokeless Tobacco: Never Tobacco Cessation:Counseling Given: No Alcohol Use Standard Drinks/Week Comments Yes 0 (1 standard drink = 0.6 oz pur e alcohol) rarely Comments Unknown Sex and Gender Information Value Date Recorded Sex Assigned at Not on file Legal Sex Female 5:20 PM CDT Gender Identity Not on file Sexual Orientation Not on file 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 file Not on file Not on file Last Filed Vital Signs Vital Sign Reading Time Taken Comments Blood Pressure 144/86 11/13/2016 3:24 PM CDT Pulse 80 11/13/2016 3:23 PM CDT Temperature - - Respiratory Rate 16 11/13/2016 3:23 PM CDT Oxygen Saturation - - Inhaled Oxygen Concentration - - Weight 72.6 kg (160 lb) 06/24/2020 10:46 AM 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 Height 160 cm (5' 3) 06/24/2020 10:46 AM 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 Body Mass Index 28.34 06/24/2020 10:46 AM 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 Plan of Treatment Health Maintenance Due Date Last Done Comments ASCVD LDL 1945 ASCVD Statin 1945 Hepatitis C 01/30/1964 Pneumococcal Vaccine: 50+ Years (1 of 2 - PCV) 1965 Zoster Vaccines (1 of 2) 01/30/1996 Annual Medicare Wellness Visit 2011 Dexa Scan (General) 2011 RSV Immunization or 60+ Years (1 - 1-dose 75+ series) 2021 COVID-19 Vaccine ( - 2023-2 5 season) 2023 DTaP, Tdap and Td Vaccines ( 3 - Td or Tdap) 02/20/2029 02/20/2019, 05/16/2007 Meningococcal B Vaccine Aged Out No l onger eligible based on patient's age to complete this topic Meningococcal Vaccine Aged Out No nancy scottie eligible based on patient's age to complete this topic RSV Immunizations Under 20 Months Aged Out No longer eligible b ased on patient's age to complete this topic Insurance [facility] BENEFITS ADMIN MEDICARE MEDICARE GENERIC - COMMERCIAL on file Care Teams Sports Activities Foul Judge Relationship Specialty Start Date End Date Baron Fleming MD [address] [place] [phone] PCP - General INTERNAL MEDICINE 09/23/15 Brock Araiza MD [address] [place] [phone] CARDIOVASCULAR DISEASE 10/11/15
--- OUTSIDE RECORDS SUMMARY | 2024-11-04 09:56 | XMS_ITS | Encounter Summary ---
Author Organization [facility] Address [address] [place] [address] Phone Care Team Providers Care Physician Asst Name Role Phone Baron Fleming MD Primary Care Provider [phone] Anoop Taylor MD PhD Unavailable [phone] Cullen Torres MD Unavailable [phone] Mauricio Ayala DO Unavailable [phone] Kevyn Lemus MD Unavailable [phone] Encounter Details Date Type Department Care Team (Late st Contact Info) Description 01/22/2020 Telephone [facility] Oncology [address] [place] [address] Medical Office [facility] [address] [place] [phone] Cullen Torres MD [address] [place] [address] [address] [place] [address] Social History Tobacco Use Types Packs/Day Years Used Date Smoking Tobacco: Never Smokeless Tobacco: Never Alcohol Use Standard Drinks/Week Comments Yes 0 (1 standard drink = 0.6 oz pur e alcohol) Rare Comments Unknown Sex and Gender Information Value Date Recorded Sex Assigned at Not on file 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 Sex 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 Gender Identity Not on file Sexual Orientation Not on file documented as of this encounter Plan of Treatment Not on file documented as of this encounter Visit Diagnoses Not on filedocumented in this encounter Care Teams Physician Asst Relationship Specialty Start Date End Date Baron Fleming MD PCP - General 08/10/08 Anoop Taylor MD PhD [address] [place] [address] Radiation Oncologist Radiation Oncology 01/28/20 Cullen Torres MD [address] [place] [address] Consulting Physician Medical Oncology 01/28/20 09/23/22 Mauricio Ayala DO [address] [place] [address] Referring Physician Surgery 01/28/20 10/06/23 Kevyn Lemus MD [address] [place], [place] [id number] Medical Oncologist/Security Team Lead Hematology and Oncology 09/25/22 documented as of this encounter
--- OUTSIDE RECORDS SUMMARY | 2024-11-04 09:56 | XMS_ITS | Clinical Summary ---
Author Organization [facility] Medical Office Building B Address [address] [place] [id number] Care Team Providers Care Equal Opportunity Director Name Role Phone Baron Fleming MD Primary Care Provider [phone] Anoop Taylor MD PhD Unavailable [phone] Kevyn Lemus MD Unavailable [phone] Allergies Active Allergy Reactions Criticality Noted Date [...] 5,000 mcg under the tongue daily Active vnfbsabn-dsp-MI-l ycopen-lutein 0.4-300-250 mg-mcg-mcg tabletIndications :Vitamin Deficiency Prevention [...] from 12/18/2019:Stage IA(pT1c, pN1a(sn), cM0, G1, ER+, VT+, HER2-, Oncotype DX score: 15) - Signed by Anoop Taylor MD PhD on 01/28/2020 History of colon polyps 05/16/2018 Overview (05/16/2018): Added automatically from request for surgery [id number] Assessment & Plan (07/10/2018 10:05 AM CDT): [...] patient. Assessment & Plan (05/08/2018 11:43 AM [employer] ART[employer]'): Will schedule colonoscopy for full evaluation since last colonoscopy was 5 years ago. Gastroesophageal reflux disease without esophagi tis 05/08/2018 Assessment & Plan (07/10/2018 10:04 AM CDT): Continue Pepcid 40 mg daily. Otherwise no worrisome signs. Assessment & Plan (05/08/2018 11:42 AM [employer]ISTS'): Will start pepcid daily. Dyspepsia 05/08/2018 Assessment & Plan (07/10/2018 10:04 AM CDT): Continue has active 3 times daily with meal. I also discussed with the patient to try peppermint oil once daily as it may help with her dyspepsia and gas symptoms. Assessment & Plan (05/08/2018 11:42 AM [employer]ISTS'): Chronic symptoms likely functional, possible bacterial over growth plus the IBS, will try Flagyl to see if it helps. Will stop the probiotics. Encounters Date Type Department Care Team Description 09/17/19 Telephone [facility] Oncology [address] [place] [address] Medical Office [address] [place] [address] Alesha An NP 09/10/19 Results Follow-Up [facility] Gastroenterology at [address] [place] [address] Gregor Alanis MD Surgical pathology 09/09/19 10:00 AM CDT Office Visit [facility] Gastroenterology at [address] [place] [address] Jame Bhakta NP Schatzki's ring of distal esophagus (Primary Dx); Food sticks on swallowing; Erosive esophagitis; Hiatal hernia; Gastric intestinal metaplasia; Sessile serrated polyp of colon; Irritable bowel syndrome with both constipation and diarrhea 09/02/19 1:38 PM CDT Anesthesia Event [address] [address] Jered Bashir MD 09/02/19 12:30 PM CDT - 09/02/19 1:00 PM CDT Surgery [address] [address] Gregor Alanis MD ESOPHAGOGASTRODUODENOSCOPY BIOPSY 09/02/19 10:54 AM CDT - 09/02/19 3:08 PM CDT Hospital Encounter [address] [address] Gregor Alanis MD Dyspepsia Discharge Disposition: Discharge to home or self care from Last 3 Months Immunizations Immunization Administration [...] COLONOSCOPY 06/20/2013 - 07/20/2013 Dr Julien at [facility] COLONOSCOPY 06/20/2018 - 07/20/2018 COLONOSCOPY 2024 Medical [...] on file Legal Sex Female 11:59 PM [employer] ARTISTS' Gender Identity Not on file Sexual Orientation [...] kg (158 lb 12.8 oz) 09/08/2024 9:41 A M CDT Height 154.9 cm (5' 1) 09/08/2024 [...] 03/19/2022, 02/23/2021, Additional history exists Influenza Vaccine (#1) 2024 , 01/23/2021, 01/22/2020, Additional history exists Fall Risk [...] Biopsy) 09/01/2024 2:05 PM CDT Narrative PATHOLOGY [facility] - 09/04/2024 10:58 AM CDT EPIC results best viewed via link to PDF [facility] Department of Pathology [address] [place], [place] [id number] Note to Patients: This report may contain [...] Final Report Patient Name: DEDE JOHNSON Address: [address] [place], [place] [id number] Gender: F : 1945 (Age: 79) Service: Gastro Location: [facility] Hospital #: [id number] Patient Type: [facility] Taken: 09/01/2024 Received: 09/02/2024 Accessioned: 09/02/2024 Reported: 09/04/2024 Physician(s):Dr. Gregor Alanis M.D. Diagnosis: A. Stomach, gastric biopsy- Benign fundic type gastric mucosa demonstrating marked reactive gastropathy B. Duodenal polyp, endoscopic biopsy- Gastric metaplasia, consistent with C. GE junction, endoscopic biopsy- Benign squamous mucosa demonstrating erosive esophagitis Negative for intestinal metaplasia/Fam's mucosa Orquidea Loear M.D. Report Electronically Reviewed and Signed Out By Orquidea Leora M.D. 09/04/2024 10:58:10 Specimen(s) Received: A: Gastric biopsy B: Duodenum polyp biopsy C: GE Junction Biopsy Microscopic Description: Microscopic examination corroborates the diagnosis. Clinical History: Dyspepsia. EGD. Gross Description: The specimen is submitted in three formalin containers labeled DEDE ARIZMENDILING. A. The first container is labeled gastric [...] mm. All in C. T.A. Cris Ospina, P.ATwyla/Orquidea Loera M.D. REPORT IMAGES AND SCANNED DOCUMENTS, IF INCLUDED, ONLY VIEWABLE IN PDF VERSION OF REPORT The performance characteristics of some immunohistochemical stains, fluorescence in-situ hybridization tests and immunophenotyping by flow cytometry cited in this report (if any) were determined by the Surgical Pathology Department at [facility] as part of an ongoing senior quality assurance specialist program and in compliance with federally mandated [...] characteristics determined by the Surgical Pathology Department [facility]. It has not been cleared or approved by the U. S. Food and Drug Administration. Note for decalcified specimens: This assay has not been validated on decalcified tissues. Results should be interpreted with caution given the possibility of false negativity on decalcified specimens us Gregor Alanis MD LAB PATHOLOGY ORDERABLES F inal Result PATHOLOGY [facility] [place]) [address] [id number] * EGD (09/01/2024 11:17 AM CDT) Anatomical Region Laterality Modality Other Narrative Procedure Note Gregor Alanis MD - 09/01/2024 11:17 AM CDT [facility] Patient Name: Dede Johnson Procedure Date: 09/01/2024 11:17 AM Date of : 1945 Admit Type: Outpatient Age: 79 Gender: Female Attending MD: Gregor Alanis M.D. Room: [facility] ENDOSCOPY ROOM 1 Note Status: Finalized Patient [...] at the GE junction. Biopsied.Dilated with 54 Japanese Hart dilator. Recommendation: - Continue present medications. [...] passed under direct vision. The Endoscope GIF-H190 [id number] was introduced through the mouth, and advanced [...] 11:17 AM Procedure Code(s): --- Professional --- 23857, Esophagogastroduodenoscopy, flexible, transoral; with biopsy, single or multiple 94857, Dilation of esophagus, by unguided sound or bougie, single or multiple passes Diagnosis Code(s): --- Professional --- K31.7, Polyp of stomach and duodenum K31.89, Other diseases of stomach and duodenum K44.9, Diaphragmatic hernia without obstruction or gangrene K22.2, Esophageal obstruction R10.13, Epigastric pain R13.10, Dysphagia, unspecified CPT copyright 2020 [employer]. All rights reserved. The codes documented in this report are preliminary and upon personal property assessor reviewmay be revised to meet current compliance requirements. Recognized by the [place] [employer] for promoting quality in endoscopy Gregor Alanis MD ENDOSCOPY PROCEDURES Final Result * Colonoscopy (2024 9:28 AM CDT) Anatomical Region Laterality Modality Other Narrative Procedure Note Gregor Alanis MD - 2024 9:28 AM CDT [facility] Patient Name: Dede Jonhson Procedure Date: 2024 9:28 AM Date of : 1945 Admit Type: Outpatient Age: 78 Gender: Female Attending MD: Gregor Alanis M.D. Room: [facility] ENDOSCOPY ROOM 1 Note Status: Finalized Patient [...] under direct vision. The Pediatric Colonoscope [id number]-H190L [id number] was introducedthrough the anus and advanced to [...] 9:28 AM Procedure Code(s): --- Professional --- 64939, Colonoscopy, flexible; with removal of tumor(s), polyp(s), or other lesion(s) by snare technique 07709, 59, Colonoscopy, flexible; with biopsy, single or multiple Diagnosis Code(s): --- Professional --- Z86.010, Personal history of colonic polyps K64.8, Other hemorrhoids D12.2, Benign neoplasm of ascending colon K57.30, Diverticulosis of large intestine without perforation orabscess without bleeding CPT copyright 2020 [employer]. All rights reserved. The codes documented in this report are preliminary and upon personal property assessor reviewmay be revised to meet current compliance requirements. Recognized by the [place] for promoting quality in endoscopy Gregor Alanis MD ENDOSCOPY PROCEDURES Final Result from Last 3 Months or Most Recently Relevant to Health Maintenance Insurance MEDICARE COMMERCIAL GENERIC [facility] [place] [address] [place] [phone] [place] [address] [facility] Advance Directives For more information, please contact: [phone] * Full Code (Latest Code Status on [...] 8:03 AM 06/24/2018 3:35 PM Care Teams Equal Opportunity Director Relationship Specialty Start Date End Date Baron Fleming MD PCP - General 08/10/08 Anoop Taylor MD PhD [address] [place] [id number] Radiation Oncologist Radiation Oncology 01/28/20 Kevyn Lemus MD [address] [place] [id number] Medical Oncologist/[employer] Collector Hematology and Oncology 09/25/22
== END 2024-11-04 09:48 | disposition home or self-care (01) ==
LOC: CHSIMG 09:50
PROVIDERS: PCP Internal Medicine; Visit Provider Internal Medicine
DX: Z12.31 Encounter for screening mammogram for malignant neoplasm of breast (principal)
CPT/HCPCS: 77063; 77067

== ENCOUNTER 2025-04-05 08:31 | Outpatient (CLI) | payer MEDICARE, SELFPAY ==
[2025-04-05 08:47] LABS: Hematocrit 41.8 % (35.0-42.0); Hemoglobin 13.2 g/dL (11.7-13.8); Mean Corpuscular HGB Conc 31.6 g/dL (32-36); Mean Corpuscular Hemoglobin 29.1 pg (27.0-31.0); Mean Corpuscular Volume 92.3 fL (78.0-102.0); Platelet Count Result 314 K/mm3 (150-420); Red Blood Count 4.53 M/mm3 (4.20-5.40); White Blood Count 5.2 K/mm3 (4.8-10.8)
[2025-04-05 08:57] LABS: Add Urine Microscopic? YES; Appearance Urine Clear (Clear); Glucose Urine UA Negative (Negative); Leukocyte Esterase Ur Trace (Negative); Nitrate Urine Negative (Negative); Specific Grav Ur 1.015 (1.010-1.020)
[2025-04-05 09:18] LABS: Alanine Aminotransferase 27 U/L (6-35); Albumin Level 4.7 g/dL (3.5-5.1); Alkaline Phosphatase 56 U/L (38-126); Anion Gap 7 mmol/L (4-12); Aspartate Amino Transferase 29 U/L (14-36); Bilirubin,Total 1.9 mg/dL (0.2-1.3); Blood Urea Nitrogen 26 mg/dL (7-17); CRP < 0.5 mg/dL (<1.0); Calcium 9.2 mg/dL (8.4-10.2); Carbon Dioxide 27 mmol/L (22-30); Chloride 106 mmol/L (98-107); Cholesterol 167 mg/dL (0-200); Estimated Glomerular Filt Rate 60; Glucose 141 mg/dL (65-110); HDL Direct 62 mg/dL; Osmolality Calculated 296 mOsm/kg (285-295); Potassium 4.2 mmol/L (3.4-5.0); Sodium 140 mmol/L (137-145); Total Protein 7.3 g/dL (6.3-8.2); Triglycerides 123 mg/dL (<150)
[2025-04-05 09:25] LABS: Hemoglobin A1C 6.2 % (<5.7)
[2025-04-05 09:46] LABS: Thyroid Stimulating Hormone 1.020 uIU/mL (0.465-4.680)
== END 2025-04-05 08:32 | disposition home or self-care (01) ==
LOC: CHSLAB 08:35
PROVIDERS: PCP Internal Medicine; Visit Provider Internal Medicine
DX: I10 Essential (primary) hypertension (principal); E78.5 Hyperlipidemia, unspecified; E11.9 Type 2 diabetes mellitus without complications; M25.50 Pain in unspecified joint
CPT/HCPCS: 36415; 80053; 80061; 81001; 83036; 84443; 85027; 86140